=== PATIENT | male | born 1985 | race Caucasian/White ===

== ENCOUNTER 2017-10-22 08:53 | Emergency (ER) | payer BC, SELFPAY ==
[2017-10-22 09:10] VITALS: BP 138/92; PULSE 89; RESP 18; TEMP 36.8; O2SAT 99; BMI 23.0
--- NOTE | 2017-10-22 09:14 | HMH.EDUTC ---
[facility] – [place] Disposition Clinical Impression: Upper respiratory infection Qualifiers: URI type: unspecified URI Qualified Code(s): J06.9 - Acute upper respiratory infection, unspecified Disposition: Home, Self-Care Condition on Discharge: Good Instructions: Sore Throat, DI for Cough -- Adult, DI for Nasal Congestion Additional Instructions: * Monitor Temp. Tylenol and/or Ibuprofen as needed. ER if fever is no less than 101 despite alternating Tylenol and Ibuprofen * Encourage fluids, water, Gatorade, powerade, pedialyte if infant/toddler/or child * Warm salt water gargles for throat irritation *Warm fluids *Sore throat lozenges *Sleep elevated *humidifier or vaporizer Lots of rest Increase fluids, water, Gatorade, powerade *Flonase 2 sprays each nostril daily but may take 2-3 days to notice improvement with it Follow up IMMEDIATELY for new or worsening of symptoms OR no noticeable improvement over the next 48-72 hours. 911 immediately for any life threatening symptoms such as chest pain or difficulty breathing Prescriptions: Brompheniramine/Pseudoephed/Dm [Bromfed DM Cough Syrup 5mL] 10 ml PO Q4HP PRN #200 ml PRN Reason: Cough Azithromycin [Z-Jose Manuel 250mg Tab] 250 mg PO UD DOSE PK #6 tab Fluticasone Propionate [Flonase 50mcg nasal spray 16gm] 2 spr NS DAILY #1 bottle predniSONE [Prednisone 5mg Tab Dose-Pack] 5 mg PO UD DOSE PK #1 pack Time of Disposition: 09:32 Medical Decision Making - Medical Records Medical records reviewed: Yes: I reviewed the patient's medical records. Vital Signs: 10/22/17 09:10 Temperature 98.2 F Temperature Source Temporal Artery Scan Pulse Rate [Right] 89 Respiratory Rate 18 Blood Pressure [Right Arm] 138/92 Blood Pressure Mean [Right Arm] 107 Blood Pressure Source [Right Arm] Automatic Cuff Blood Pressure Position [Right Arm] Sitting 02 Sat by Pulse Oximetry 99 Oxygen Delivery Method Room Air Orders (Tests/Meds): ED MEDICATIONS Discontinued Medications Generic Name Dose Route Start Last Admin Trade Name Freq PRN Reason Stop Dose Admin Methylprednisolone Sodium Succinate 125 mg 10/22/17 09:19 Solu-Medrol 125mg/2ml Vial IM 10/22/17 09:20 ONCE ONE - Bear Inquiry Pt receiving controlled substance: No Bear was queried for this patient: No - Reevaluation(s) Reevaluation #1: Patient denies allergies to medication [facility] [place] HPI - General Stated complaint: head congestion and drainage Mode of Arrival: Ambulatory Source of Information: Patient Limitations: No Limitations Description of Symptoms (Recalled from Triage Doc. by RN): COUGH, CONGESTION, SORE THROAT LAST NIGHT HEENT Symptoms (Recalled from RN notes): Yes Resp Symptoms (Recalled from RN notes): No Skin Symptoms (Recalled from RN notes): No MS Symptoms (Recalled from RN notes): No Functional Status (Recalled from RN notes): N - History of Present Illness Provider Complaint: Patient state that he has been having cough, sore throat and head congestion that began to worsen yesterday and has continued to get worse. State that he has not felt well since yesterday and has continued to feel worse. State that he has not had fever but state that family members have been sick. State that his girlfriend was diagnosed with sinus infection recently and not sure if he has one or not - Related Data Previous Rx's Medication Instructions Recorded Azithromycin [Z-Jose Manuel 250mg Tab] 250 mg PO UD DOSE PK #6 tab 10/22/17 Brompheniramine/Pseudoephed/Dm 10 ml PO Q4HP PRN #200 ml 10/22/17 [Bromfed DM Cough Syrup 5mL] Fluticasone Propionate [Flonase 2 spr NS DAILY #1 bottle 10/22/17 50mcg nasal spray 16gm] predniSONE [Prednisone 5mg Tab 5 mg PO UD DOSE PK #1 pack 10/22/17 Dose-Pack] Allergies Allergy/AdvReac Type Severity Reaction Status Date / Time No Known Allergies Allergy Verified 10/22/17 09:13 - Worker's Comp Is this a Worker's Comp case?: No [facility] History I have reviewed the patient's pas
--- NOTE | 2017-10-22 09:19 | ED_ITS ---
[facility] [place] Clinical Impression: Upper respiratory infection Qualifiers: URI type: unspecified URI Qualified Code(s): J06.9 - Acute upper respiratory infection, unspecified Disposition: Home, Self-Care Condition on Discharge: Good Instructions: Sore Throat, DI for Cough -- Adult, DI for Nasal Congestion Additional Instructions: * Monitor Temp. Tylenol and/or Ibuprofen as needed. ER if fever is no less than 101 despite alternating Tylenol and Ibuprofen * Encourage fluids, water, Gatorade, powerade, pedialyte if infant/toddler/or child * Warm salt water gargles for throat irritation *Warm fluids *Sore throat lozenges *Sleep elevated *humidifier or vaporizer Lots of rest Increase fluids, water, Gatorade, powerade *Flonase 2 sprays each nostril daily but may take 2-3 days to notice improvement with it Follow up IMMEDIATELY for new or worsening of symptoms OR no noticeable improvement over the next 48-72 hours. 911 immediately for any life threatening symptoms such as chest pain or difficulty breathing Prescriptions: Brompheniramine/Pseudoephed/Dm [Bromfed DM Cough Syrup 5mL] 10 ml PO Q4HP PRN # 200 ml PRN Reason: Cough Azithromycin [Z-Jose Manuel 250mg Tab] 250 mg PO UD DOSE PK #6 tab Fluticasone Propionate [Flonase 50mcg nasal spray 16gm] 2 spr NS DAILY #1 bottle predniSONE [Prednisone 5mg Tab Dose-Pack] 5 mg PO UD DOSE PK #1 pack Time of Disposition: 09:32 Medical Decision Making - Medical Records Medical records reviewed: Yes: I reviewed the patient's medical records. Vital Signs: 10/22/17 09:10 Temperature 98.2 F Temperature Source Temporal Artery Scan Pulse Rate [Right] 89 Respiratory Rate 18 Blood Pressure [Right Arm] 138/92 Blood Pressure Mean [Right Arm] 107 Blood Pressure Source [Right Arm] Automatic Cuff Blood Pressure Position [Right Arm] Sitting 02 Sat by Pulse Oximetry 99 Oxygen Delivery Method Room Air Orders (Tests/Meds): ED MEDICATIONS Discontinued Medications Generic Name Dose Route Start Last Admin Trade Name Freq PRN Reason Stop Dose Admin Methylprednisolone Sodium Succinate 125 mg 10/22/17 09:19 Solu-Medrol 125mg/2ml Vial IM 10/22/17 09:20 ONCE ONE - Bear Inquiry Pt receiving controlled substance: No Bear was queried for this patient: No - Reevaluation(s) Reevaluation #1: Patient denies allergies to medication [facility] [place] - General Stated complaint: head congestion and drainage Mode of Arrival: Ambulatory Source of Information: Patient Limitations: No Limitations Description of Symptoms (Recalled from Triage Doc. by RN): COUGH, CONGESTION, SORE THROAT LAST NIGHT HEENT Symptoms (Recalled from RN notes): Yes Resp Symptoms (Recalled from RN notes): No Skin Symptoms (Recalled from RN notes): No MS Symptoms (Recalled from RN notes): No Functional Status (Recalled from RN notes): N - History of Present Illness Provider Complaint: Patient state that he has been having cough, sore throat and head congestion that began to worsen yesterday and has continued to get worse. State that he has not felt well since yesterday and has continued to feel worse. State that he has not had fever but state that family members have been sick. State that his girlfriend was diagnosed with sinus infection recently and not sure if he has one or not - Related Data Previous Rx's Medication Instruct
[2017-10-22 09:27] LABS: UTC Influenza A Antigen Negative (Negative); UTC Influenza B Antigen Negative (Negative)
[2017-10-22 09:40] VITALS: BP 142/88; PULSE 78; RESP 16; TEMP 36.9
== END 2017-10-22 09:41 | disposition home or self-care (01) ==
PROVIDERS: Emergency Provider Nurse Practitioner; Family Provider Physician Assistant
DX: J06.9 Acute upper respiratory infection, unspecified (principal); F17.210 Nicotine dependence, cigarettes, uncomplicated
CPT/HCPCS: 87804; 96372; 99201

== ENCOUNTER 2017-11-03 15:43 | Emergency (ER) | payer BC, SELFPAY ==
[2017-11-03 17:33] VITALS: BP 153/90; PULSE 71; RESP 20; TEMP 36.4; O2SAT 99; BMI 29.7
[2017-11-03 17:40] LABS: UTC Influenza A Antigen Negative (Negative); UTC Influenza B Antigen Negative (Negative)
--- NOTE | 2017-11-03 17:46 | HMH.EDUTC ---
[facility] – [place] Disposition Clinical Impression: Rhinorrhea, Exposure to influenza Disposition: Home, Self-Care Condition on Discharge: Good Instructions: DI for Viral Upper Respiratory Infection -- Adult, DI for Allergic Rhinitis Additional Instructions: * No sign of bacterial infection. Could be viral or allergies depending on how/ifit progresses. Virus can take 7-14 days to run their course * Monitor Temp. FU if fever develops * Encourage fluids, water, gatorade, powerade, pedialyte if /toddler/child * warm salt water gargles * warm fluids * sore throat lozenges * sleep elevated * humidifier/vaporizer * Start antihistamine of your choice (claritin, zyrtec, laura). If no improvement over 5-7 days, add flonase that you already have at home. Start with 1 spray each nostril daily and if no improvement after 4-6 days, increase to 2 sprays each nostril Referrals: Ira Ojeda PA [Primary Care Provider] - (IMMEDIATELY for new or worsening symptoms ) Forms: Work/School Release Time of Disposition: 18:02 Medical Decision Making Vital Signs: 11/03/17 17:33 Temperature 97.6 F Temperature Source Temporal Artery Scan Pulse Rate [Right Radial] 71 Respiratory Rate 20 Blood Pressure [Right Arm] 153/90 Blood Pressure Mean [Right Arm] 111 02 Sat by Pulse Oximetry 99 Oxygen Delivery Method Room Air - Lab Data Lab results reviewed: Yes: I reviewed the patient's lab results. Lab Results 11/03/17 17:26: Influenza Type A Ag Negative, Influenza Type B Ag Negative - Bear Inquiry Pt receiving controlled substance: No [facility] [place] HPI - General Stated complaint: check for flu Time Seen by Provider: 11/03/17 17:46 Mode of Arrival: Family Vehicle Source of Information: Patient Limitations: No Limitations Description of Symptoms (Recalled from Triage Doc. by RN): pt c/o flu like symptoms for 2 days. HEENT Symptoms (Recalled from RN notes): Yes (flu like) Resp Symptoms (Recalled from RN notes): Yes (flu like) Skin Symptoms (Recalled from RN notes): No MS Symptoms (Recalled from RN notes): No Functional Status (Recalled from RN notes): na - History of Present Illness Provider Complaint: c/o I want checked for the flu. my girlfriend has it and now I have a runny nose and cough . Started 2 days ago. Had spent the day outside. No treatment. Denies fever, aches, chills - Related Data Previous Rx's Medication Instructions Recorded Azithromycin [Z-Jose Manuel 250mg Tab] 250 mg PO UD DOSE PK #6 tab 10/22/17 Brompheniramine/Pseudoephed/Dm 10 ml PO Q4HP PRN #200 ml 10/22/17 [Bromfed DM Cough Syrup 5mL] Fluticasone Propionate [Flonase 2 spr NS DAILY #1 bottle 10/22/17 50mcg nasal spray 16gm] predniSONE [Prednisone 5mg Tab 5 mg PO UD DOSE PK #1 pack 10/22/17 Dose-Pack] Allergies Allergy/AdvReac Type Severity Reaction Status Date / Time No Known Allergies Allergy Verified 10/22/17 09:13 - Worker's Comp Is this a Worker's Comp case?: No [facility] History I have reviewed the patient's past medical history: Yes Medical History: Denies:: Cancer, Diabetes Mellitus Type 1, Diabetes Mellitus Type 2, Hypertension, MRSA Other Surgeries: Yes: No Previous Surgery Amputation: No Fractures: No - Social History Smoking Status: Current every day smoker Tobacco Type: cigarettes Alcohol Intake: current Alcohol Intake Frequency:: 0-2 drinks per day - Psychiatric History Expresses thoughts of harming self/others: None Suicide Plan Description: No Plan ROS Obtained: Yes Systems reviewed as appropriate & no additional complaints - Constitutional Constitutional: Reports as per HPI, Denies fatigue, Denies poor appetite - Eyes Eyes: Denies eye discharge, Denies itchy eyes, Denies eye pain, Denies other (eye redness) - ENT Ears, Nose, Mouth, and Throat: Reports as per HPI, Denies difficulty swallowing, Denies otalgia, Denies pain with swallowing, Reports post nasal drip, Denies sore throat, Denies other (sneezing) -
--- NOTE | 2017-11-03 17:59 | ED_ITS ---
[facility] – [place] Disposition Clinical Impression: Rhinorrhea, Exposure to influenza Disposition: Home, Self-Care Condition on Discharge: Good Instructions: DI for Viral Upper Respiratory Infection -- Adult, DI for Allergic Rhinitis Additional Instructions: * No sign of bacterial infection. Could be viral or allergies depending on how/ ifit progresses. Virus can take 7-14 days to run their course * Monitor Temp. FU if fever develops * Encourage fluids, water, gatorade, powerade, pedialyte if infant/toddler/ child * warm salt water gargles * warm fluids * sore throat lozenges * sleep elevated * humidifier/vaporizer * Start antihistamine of your choice (claritin, zyrtec, laura). If no improvement over 5-7 days, add flonase that you already have at home. Start with 1 spray each nostril daily and if no improvement after 4-6 days, increase to 2 sprays each nostril Referrals: Ira Ojeda PA [Primary Care Provider] - (IMMEDIATELY for new or worsening symptoms ) Forms: Work/School Release Time of Disposition: 18:02 Medical Decision Making Vital Signs: 11/03/17 17:33 Temperature 97.6 F Temperature Source Temporal Artery Scan Pulse Rate [Right Radial] 71 Respiratory Rate 20 Blood Pressure [Right Arm] 153/90 Blood Pressure Mean [Right Arm] 111 02 Sat by Pulse Oximetry 99 Oxygen Delivery Method Room Air - Lab Data Lab results reviewed: Yes: I reviewed the patient's lab results. Lab Results 11/03/17 17:26: Influenza Type A Ag Negative, Influenza Type B Ag Negative - Bear Inquiry Pt receiving controlled substance: No [facility] [place] HPI - General Stated complaint: check for flu Time Seen by Provider: 11/03/17 17:46 Mode of Arrival: Family Vehicle Source of Information: Patient Limitations: No Limitations Description of Symptoms (Recalled from Triage Doc. by RN): pt c/o flu like symptoms for 2 days. HEENT Symptoms (Recalled from RN notes): Yes (flu like) Resp Symptoms (Recalled from RN notes): Yes (flu like) Skin Symptoms (Recalled from RN notes): No MS Symptoms (Recalled from RN notes): No Functional Status (Recalled from RN notes): na - History of Present Illness Provider Complaint: c/o I want checked for the flu. my girlfriend has it and now I have a runny nose and cough . Started 2 days ago. Had spent the day outside. No treatment. Denies fever, aches, chills - Related Data Previous Rx's Medication Instructions Recorded Azithromycin [Z-Jose Manuel 250mg Tab] 250 mg PO UD DOSE PK #6 tab 10/22/17 Brompheniramine/Pseudoephed/Dm 10 ml PO Q4HP PRN #200 ml 10/22/17 [Bromfed DM Cough Syrup 5mL] Fluticasone Propionate [Flonase 2 spr NS DAILY #1 bottle 10/22/17 50mcg nasal spray 16gm] predniSONE [Prednisone 5mg Tab 5 mg PO UD DOSE PK #1 pack 10/22/17 Dose-Pack] Allergies Allergy/AdvReac Type Severity Reaction Status Date / Time No Known Allergies Allergy Verified 10/22/17 09:13 - Worker's Comp Is this a Worker's Comp case?: No [facility] History I have reviewed the patient's past medical history: Yes Medical History: Denies:: Cancer, Diabetes Mellitus Type 1, Diabetes Mellitus Type 2, Hypertension, MRSA Other Surgeries: Yes: No Previous Surgery Amputation: No Fractures: No - Social History Smoking Status: Current every day smoker Tobacco Type: cigarettes Alcohol Intake: current Alcohol
[2017-11-03 18:20] VITALS: BP 137/77; PULSE 67; RESP 20; TEMP 37.1; O2SAT 99
== END 2017-11-03 18:22 | disposition home or self-care (01) ==
PROVIDERS: Emergency Provider Nurse Practitioner Family; Family Provider Physician Assistant; PCP Physician Assistant
DX: J34.89 Other specified disorders of nose and nasal sinuses (principal); Z20.828 Contact with and (suspected) exposure to other viral communicable diseases
CPT/HCPCS: 87804; 99202

== ENCOUNTER → 2020-02-21 12:28 | Outpatient (CLI) | payer OTHER, SELFPAY ==
--- NOTE | 2020-02-21 12:33 | XR_ITS ---
PROCEDURE: XR KNEE RT 4V CLINICAL INDICATION: right knee pain Right knee pain COMPARISON: No exams were available for comparison FINDINGS: No fracture or dislocation. No lytic or blastic change. There is normal mineralization. There is slight decrease in the joint space medially compared to the lateral joint space on the weight-bearing view. This could be seen with early degenerative changes. However, no osteophyte formation or osteosclerosis is evident. Other findings:None. IMPRESSION: Slight decrease in joint space medially otherwise negative right knee Dictated by: Tj Elizabeth MD 02/21/2020 13:30 Electronically signed by Tj Elizabeth MD in [place] 02/21/2020 13:30
== END ==
PROVIDERS: PCP Physician Assistant; Visit Provider Orthopaedic Surgery
DX: M25.561 Pain in right knee (principal)
CPT/HCPCS: 73564

== ENCOUNTER → 2020-02-28 15:19 | Outpatient (CLI) | payer OTHER, SELFPAY ==
--- NOTE | 2020-02-28 15:29 | MR_ITS ---
PROCEDURE: MR KNEE RT WO CON CLINICAL INDICATION: evaluate for meniscal tear Right knee pain and instability COMPARISON: XR KNEE RT 4V from 02/21/2020 TECHNIQUE: Routine multiplanar multi echo sequences are performed without gadolinium enhancement. FINDINGS: The cruciate ligaments, collateral ligaments, patellar tendon, and quadriceps tendon appear intact. No obvious meniscal tear. The patellar cartilage is well preserved. There is only small amount of fluid in the knee joint. No bone bruise or fracture or bone marrow edema. IMPRESSION: Negative MRI of the right knee Dictated by: Tj Elizabeth MD 03/01/2020 12:59 Electronically signed by Tj Elizabeth MD in [place] 03/01/2020 12:59
== END ==
PROVIDERS: PCP Physician Assistant; Visit Provider Orthopaedic Surgery
DX: M25.561 Pain in right knee (principal); G89.29 Other chronic pain
CPT/HCPCS: 73721

== ENCOUNTER → 2020-11-21 18:08 | Outpatient (CLI) | payer OTHER, SELFPAY ==
[2020-11-21 18:31] LABS: Basophils # 0.1 K/mm3 (0-0.2); Basophils % 0.6 % (0.1-2.0); Eosinophils # 0.1 K/mm3 (0.0-0.4); Eosinophils % 1.1 % (0.1-12.0); Hematocrit 44.7 % (42.0-52.0); Hemoglobin 14.5 g/dL (14.1-18.0); Lymphocytes # 11.2 K/mm3 (0.7-4.5); Lymphocytes % 95.2 % (10-50); Mean Corpuscular HGB Conc 32.5 g/dL (31.8-35.4); Mean Corpuscular Hemoglobin 30.1 pg (27.0-31.2); Mean Corpuscular Volume 92.8 fl (80-94); Mean Platelet Volume 9.9 fl (7.4-10.4); Monocytes # 0.4 K/mm3 (0.1-1.0); Platelet Count 283 K/mm3 (142-424); Red Blood Count 4.81 M/mm3 (4.60-6.20); Red Cell Distribution Width 12.8 % (11.5-17.5); White Blood Count 11.8 K/mm3 (4.8-10.8)
[2020-11-21 18:38] LABS: Neutrophils % 0.2 % (37.0-80.0)
[2020-11-21 18:40] LABS: MANUAL DIFFERENTIAL MANUAL DIFFERENTIAL (MANUAL DIFF)
[2020-11-21 19:06] LABS: Eosinophils % 1 % (0-3); Lymphocytes % 31 % (10-50); Monocytes % 4 % (2-9); Neutrophils % 64 % (42-76); Platelet Estimate Normal; RBC Morphology Normal; Total Cells Counted 100
[2020-11-21 19:11] LABS: Alanine Aminotransferase 17 U/L (12-78); Albumin Level 4.5 g/dl (3.5-5.0); Alkaline Phosphatase 67 U/L (38-126); Aspartate Amino Transferase 25 U/L (17-59); Bilirubin,Total 0.4 mg/dl (0.2-1.3); Blood Urea Nitrogen 12 mg/dl (9-20); Calcium 9.3 mg/dl (8.4-10.2); Carbon Dioxide 21 mmol/L (22.0-30.0); Chloride 108 mmol/L (98-107); Chol/HDL Ratio 4.4 (1-3.5); Cholesterol 172 mg/dl (140-200); Estimated Glomerular Filt Rate 111 ml/min (>60); GFR (African American) 135 ML/MIN (>60); Globulin 2.2 g/dL (1.3-3.2); Glucose 100 mg/dl (74-100); HDL Cholesterol 39 mg/dl (40-60); Sodium 140 mmol/L (136-145); Total Protein,Serum 6.7 g/dl (6.3-8.2); Triglycerides 130 mg/dl (30-150); VLDL Cholesterol 26 mg/dL (0-40)
[2020-11-21 19:22] LABS: Direct LDL Cholesterol 102.27 mg/dL (100-129)
[2020-11-21 19:28] LABS: T4 (Thyroxine) 10.6 ug/dl (5.53-11.0)
[2020-11-21 19:42] LABS: Thyroid Stimulating Hormone 1.11 uIU/mL (0.465-4.68)
[2020-11-23 09:35] LABS: Testosterone,Total 388 ng/dL (264-916)
== END ==
PROVIDERS: Visit Provider Physician Assistant
DX: N52.9 Male erectile dysfunction, unspecified (principal); Z00.00 Encounter for general adult medical examination without abnormal findings; R53.83 Other fatigue; M79.642 Pain in left hand; M79.641 Pain in right hand; F17.210 Nicotine dependence, cigarettes, uncomplicated
CPT/HCPCS: 80053; 80061; 84403; 84436; 84443; 85007; 85025

== ENCOUNTER → 2020-12-06 14:10 | Outpatient (CLI) | payer OTHER, SELFPAY ==
[2020-12-08 13:12] LABS: Testosterone,Total 354 ng/dL (264-916)
== END ==
PROVIDERS: Visit Provider Physician Assistant
DX: R79.89 Other specified abnormal findings of blood chemistry (principal)
CPT/HCPCS: 84403

== ENCOUNTER 2021-01-13 17:10 | Emergency (ER) | payer OTHER, SELFPAY ==
[2021-01-13 17:10] VITALS: BP 157/78; PULSE 65; RESP 18; TEMP 36.8; O2SAT 99; BMI 28.5
--- NOTE | 2021-01-13 17:43 | XR_ITS ---
PROCEDURE INFORMATION: Exam: XR Left Wrist Exam date and time: 01/13/2021 5:43 PM Age: 35 years old Clinical indication: Wrist; Left; Patient HX: Chronic pain in hands, pain worsening today---. Patient works with his hands everyday TECHNIQUE: Imaging protocol: XR Left wrist. Views: 3 or more views. COMPARISON: No relevant prior studies available. FINDINGS: Bones/joints: There is no acute fracture or dislocation. There is a 0.5 x 1.0 cm lucent lesion of the scaphoid with minimally sclerotic margins. Soft tissues: Normal. IMPRESSION: 1 cm lucent lesion of the scaphoid. The differential diagnosis is broad however includes neoplastic lesions such as simple bone cyst or enchondroma. Recommend further evaluation with MRI with contrast.
--- NOTE | 2021-01-13 17:45 | XR_ITS ---
PROCEDURE INFORMATION: Exam: XR Left Hand Exam date and time: 01/13/2021 5:45 PM Age: 35 years old Clinical indication: Left; Patient HX: Chronic pain in hands/wrist, worsening today---. Patient works with his hands everyday TECHNIQUE: Imaging protocol: XR Left hand. Views: 3 or more views. COMPARISON: No relevant prior studies available. FINDINGS: Bones/joints: There is no acute fracture or dislocation. Note is again made of a lucent lesion of the scaphoid, better visualized on wrist radiographs. Soft tissues: Normal. IMPRESSION: 1. No acute fracture or dislocation. 2. Lucent lesion of scaphoid, better evaluated on wrist radiographs.
[2021-01-13 17:59] VITALS: BP 149/83; PULSE 71; RESP 14; TEMP 36.9; O2SAT 99; BMI 28.6
--- NOTE | 2021-01-13 18:22 | HMH.EDUTC ---
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 Take ibuprofen for pain. I sent in a prescription to your pharmacy. Follow up with Dr. Veloz (orthopedics). I put in a referral but you need to call his office and schedule an appointment. Follow up with your regular doctor. GO TO THE ER FOR ANY WORSENING SYMPTOMS Prescriptions: Ibuprofen [Ibuprofen 800mg Tablet] 800 mg PO Q8HP PRN #30 tab PRN Reason: Moderate Pain Transmission Status: Received by [id number] Referrals: Ira Ojeda PA [Primary Care Provider] - Jose Veloz MD [Staff Physician] - Time of Disposition: 18:40 Medical Decision Making - Medical Records Medical records reviewed: No: I reviewed the patient's medical records. - Bear Inquiry Pt receiving controlled substance: No Vital Signs: 01/13/21 17:10 01/13/21 17:59 01/13/21 18:39 Temperature 98.3 F 98.4 F 98 F Temperature Source Oral Oral Pulse Rate 76 Pulse Rate [Right] 65 71 Respiratory Rate 18 14 18 Blood Pressure 139/87 Blood Pressure [Right Arm] 157/78 H 149/83 H Blood Pressure Mean [Right Arm] 104 105 Blood Pressure Source [Right Arm] Automatic Cuff Blood Pressure Position [Right Arm] Sitting 02 Sat by Pulse Oximetry 99 99 Oxygen Delivery Method Room Air Room Air - Radiology Data #1 Image(s): Hand Image Reviewed: Yes I reviewed the patient's radiology image, Yes I have reviewed radiologist's interpretation Preliminary Findings: Abnormal, No Fracture Seen PROCEDURE INFORMATION: Exam: XR Left Hand Exam date and time: 01/13/2021 5:45 PM Age: 35 years old Clinical indication: Left; Patient HX: Chronic pain in hands/wrist, worsening today---. Patient works with his hands everyday TECHNIQUE: Imaging protocol: XR Left hand. Views: 3 or more views. COMPARISON: No relevant prior studies available. FINDINGS: Bones/joints: There is no acute fracture or dislocation. Note is again made of a lucent lesion of the scaphoid, better visualized on wrist radiographs. Soft tissues: Normal. IMPRESSION: 1. No acute fracture or dislocation. 2. Lucent lesion of scaphoid, better evaluated on wrist radiographs. #2 Image(s): Wrist Image Reviewed: Yes I reviewed the patient's radiology image, Yes I have reviewed radiologist's interpretation Preliminary Findings: Abnormal, No Fracture Seen PROCEDURE INFORMATION: Exam: XR Left Wrist Exam date and time: 01/13/2021 5:43 PM Age: 35 years old Clinical indication: Wrist; Left; Patient HX: Chronic pain in hands, pain worsening today---. Patient works with his hands everyday TECHNIQUE: Imaging protocol: XR Left wrist. Views: 3 or more views. COMPARISON: No relevant prior studies available. FINDINGS: Bones/joints: There is no acute fracture or dislocation. There is a 0.5 x 1.0 cm lucent lesion of the scaphoid with minimally sclerotic margins. Soft tissues: Normal. IMPRESSION: 1 cm lucent lesion of the scaphoid. The differential diagnosis is broad however includes neoplastic lesions such as simple bone cyst or enchondroma. Recommend further evaluation with MRI with contrast. [facility] [place] - General Stated complaint: pain in L wrist trouble using L hand Time Seen by Provider: 01/13/21 18:22 Mode of Arrival: Ambulatory Source of Information: Patient Limitations: No Limitations Description of Symptoms (Recalled from Triage Doc. by RN): L hand a wrist pain. started about a month
[2021-01-13 18:39] VITALS: BP 139/87; PULSE 76; RESP 18; TEMP 36.6
== END 2021-01-13 18:44 | disposition home or self-care (01) ==
LOC: ER 17:29 → UTC 17:30
PROVIDERS: Emergency Provider Nurse Practitioner Family; PCP Physician Assistant
DX: M79.642 Pain in left hand (principal); D16.12 Benign neoplasm of short bones of left upper limb; F17.210 Nicotine dependence, cigarettes, uncomplicated
CPT/HCPCS: 29125; 73110; 73130; 99202; G0463

== ENCOUNTER → 2021-02-27 10:02 | Outpatient (CLI) | payer OTHER, SELFPAY ==
--- NOTE | 2021-02-27 10:11 | MR_ITS ---
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 18ml prohance; Additional info: Evaluate bone cyst TECHNIQUE: Imaging protocol: MR of the Left upper extremity without and with contrast. Exam focused on the wrist. Contrast material: PROHANCE; Contrast volume: 18 ml; Contrast route: IV; COMPARISON: CR XR WRIST LT MIN 3V 01/13/2021 5:44 PM FINDINGS: Bones and cartilage: Within the bone marrow of the scaphoid bone, there is a STIR hyperintense multiloculated cystic/lytic lesion measuring 0.9 x 0.6 cm. This demonstrates a narrow zone of transition, with peripheral enhancement. A tiny cortical defect is identified posteriorly on T1. A similar finding is visualized on prior radiographs. Surrounding enhancing marrow edema is visualized within the scaphoid bone. Differential considerations for the cystic/lytic lesion include osteoarthritis, chronic repetitive trauma, intra-osseous ganglion, arthropathy, and infection. Additional etiologies cannot be excluded. No dislocation of the carpal bones. Joint spaces: Mild narrowing of the radiocarpal joint space, consistent with arthropathy. Scapholunate ligament: Heterogeneous signal intensity of the scapholunate ligament on the coronal 3D sequence, although tear is not definitive on the coronal STIR sequence. Lunotriquetral ligament: No tear. Triangular fibrocartilage complex: No visualized tear. Flexor compartment tendons: Unremarkable. No tear. Extensor compartment tendons: Minimal fluid adjacent to the extensor carpi radialis longus and brevis tendons, consistent with minimal tenosynovitis. Mild increased signal intensity within the extensor carpi ulnaris tendon, consistent with tendinosis. Muscles: No acute abnormality. Soft tissues: Mild soft tissue swelling dorsal to the wrist. IMPRESSION: 1. Within the bone marrow of the scaphoid bone, there is a multiloculated cystic/lytic lesion measuring 0.9 x 0.6 cm. A tiny cortical defect is identified posteriorly on T1. Surrounding enhancing marrow edema is visualized within the scaphoid bone. Differential considerations for the cystic/lytic lesion include osteoarthritis, chronic repetitive trauma, intra-osseous ganglion, arthropathy, and infection. Clinical correlation and follow-up imaging recommended. 2. Mild narrowing of the radiocarpal joint space, consistent with arthropathy. 3. Mild tendinosis of the extensor carpi ulnaris tendon. 4. Mild soft tissue swelling dorsal to the wrist. 5. Additional findings described above.
--- NOTE | 2021-02-27 10:14 | XR_ITS ---
PROCEDURE: XR ORBIT BILATERAL MIN 4V CLINICAL INDICATION: MRI CLEARANCE COMPARISON: No exams were available for comparison FINDINGS: No radiopaque foreign body in the orbits to preclude MRI. Paranasal sinuses appear patent. IMPRESSION: No radiopaque foreign body in the orbits to preclude MRI. Dictated by: Issac Alexandre MD 02/27/2021 10:25 Issac Alexandre MD in [place] 02/27/2021 10:25
== END ==
PROVIDERS: PCP Physician Assistant; Visit Provider Orthopaedic Surgery
DX: H05.53 Retained (old) foreign body following penetrating wound of bilateral orbits (principal); M85.642 Other cyst of bone, left hand
CPT/HCPCS: 70200; 73223; A9576

== ENCOUNTER → 2021-08-15 09:49 | Outpatient (CLI) | payer OTHER, SELFPAY | PROVIDERS: PCP Physician Assistant; Visit Provider Nurse Practitioner | DX: Z20.822 Contact with and (suspected) exposure to COVID-19 (principal) | CPT/HCPCS: C9803; U0003; U0005 ==

== ENCOUNTER → 2021-09-23 10:58 | Outpatient (CLI) | payer OTHER, SELFPAY | PROVIDERS: Visit Provider Nurse Practitioner | DX: Z20.822 Contact with and (suspected) exposure to COVID-19 (principal) | CPT/HCPCS: C9803; U0003; U0005 ==

== ENCOUNTER 2021-12-10 12:04 | Emergency (ER) | payer OTHER, SELFPAY ==
--- NOTE | 2021-12-10 14:21 | HMH.EDUTC ---
[facility] [place] Clinical Impression: Viral syndrome Pharyngitis Qualifiers: Pharyngitis/tonsillitis etiology: unspecified etiology Qualified Code(s): J02.9 - Acute pharyngitis, unspecified Disposition: Home, Self-Care Condition on Discharge: Good Instructions: DI for Pharyngitis/Tonsillopharyngitis -- Adult, DI for Viral Syndrome Additional Instructions: Drink plenty of fluids. Take tylenol or ibuprofen for pain or fever. Take the medications as directed. Follow up with your regular doctor. GO TO THE ER FOR ANY WORSENING SYMPTOMS Prescriptions: Brompheniramine/Pseudoephed/Dm [Bromfed Dm Cough Syrup] 5 ml PO Q6HP PRN #240 ml PRN Reason: Cough Transmission Status: Received by [facility] Ondansetron [Zofran 4mg ODT] 4 mg PO Q8HP PRN #20 tab PRN Reason: Nausea Transmission Status: Received by [facility] methylPREDNISolone [Medrol] 4 mg PO DIRECTED 6 Days #21 packet Transmission Status: Received by [facility] Azithromycin [Z-Jose Manuel 250mg Tab*] 250 mg PO UD DOSE PK #6 tab Transmission Status: Received by [facility] Referrals: Ira Ojeda PA [Primary Care Provider] - Forms: Work/School Release Time of Disposition: 15:50 Medical Decision Making - Medical Records Medical records reviewed: No: I reviewed the patient's medical records. - Bear Inquiry Pt receiving controlled substance: No Vital Signs: 12/10/21 14:28 12/10/21 16:12 Temperature 100.7 F H 100.7 F H Temperature Source Oral Pulse Rate 104 H Pulse Rate [Left] 104 H Respiratory Rate 18 18 Blood Pressure 142/88 H Blood Pressure [Right Arm] 142/88 H Blood Pressure Mean [Right Arm] 106 02 Sat by Pulse Oximetry 97 - Lab Data Lab results reviewed: Yes: I reviewed the patient's lab results. Lab Results 12/10/21 14:19: Influenza Type A Ag Negative, Influenza Type B Ag Negative 12/10/21 15:10: Group A Strep Rapid Negative Orders (Tests/Meds): ORDERS Category Date Time Status Strep Screen Confirmation Stat Micro 12/10/21 15:10 Received [facility] [place] - General Stated complaint: sore throat,congested,runny nose,achey Time Seen by Provider: 12/10/21 14:21 - History of Present Illness Provider Complaint: He c/o sinsu congstion, body aches, low grade fever and feeling bad for the past 3 days. - Related Data Previous Rx's Medication Instructions Recorded Ibuprofen [Ibuprofen 800mg 800 mg PO Q8HP PRN #30 tab 01/13/21 Tablet] Azithromycin [Z-Jose Manuel 250mg Tab*] 250 mg PO UD DOSE PK #6 tab 12/10/21 Brompheniramine/Pseudoephed/Dm 5 ml PO Q6HP PRN #240 ml 12/10/21 [Bromfed Dm Cough Syrup] Ondansetron [Zofran 4mg ODT] 4 mg PO Q8HP PRN #20 tab 12/10/21 methylPREDNISolone [Medrol] 4 mg PO DIRECTED 6 Days #21 12/10/21 packet Allergies Allergy/AdvReac Type Severity Reaction Status Date / Time No Known Allergies Allergy Verified 08/05/21 16:38 [facility] History - Hepatitis A Screen Attestation statement:: This patient has been screened for Hepatitis A risk factors. I have reviewed the patient's past medical history: Yes Medical History: Denies:: Cancer, Diabetes Mellitus Type 1, Diabetes Mellitus Type 2, Hypertension, MRSA Other Surgeries: Yes: No Previous Surgery, Colonoscopy Amputation: No Fractures: No - Social History Smoking Status: Current every day smoker Tobacco Type: cigarettes Alcohol Intake: current Alcohol Intake Frequency:: holidays/special occasions only Occupational Status: employed Family Hx:: Heart Attack, Stroke ROS Obtained: Yes All systems reviewed & no additional complaints - Constitutional Constitutional: Reports as per HPI - Eyes Eyes: Denies eye discharge - ENT Ears, Nose, Mouth, and Throat: Reports as per HPI - Cardiovascular Cardiovascular: Denies chest pain - Respiratory Respiratory: Reports chest congestion, Reports cough, Denies dyspnea, Denies stridor, Denies wheezing Physical
[2021-12-10 14:28] VITALS: BP 142/88; PULSE 104; RESP 18; TEMP 38.2; O2SAT 97; BMI 28.3
[2021-12-10 14:30] LABS: UTC Influenza A Antigen Negative (Negative); UTC Influenza B Antigen Negative (Negative)
[2021-12-10 15:40] LABS: Strep Scrn Group A (Rapid) Negative (Negative)
[2021-12-10 16:12] VITALS: BP 142/88; PULSE 104; RESP 18; TEMP 38.2
== END 2021-12-10 16:13 | disposition home or self-care (01) ==
PROVIDERS: Emergency Provider Nurse Practitioner Family; PCP Physician Assistant
DX: B34.9 Viral infection, unspecified (principal); J02.9 Acute pharyngitis, unspecified; F17.210 Nicotine dependence, cigarettes, uncomplicated
CPT/HCPCS: 87430; 87804

== ENCOUNTER → 2023-06-29 17:26 | Outpatient (CLI) | payer MEDICARE, SELFPAY | PROVIDERS: PCP Physician Assistant; Visit Provider Physician Assistant | DX: R19.5 Other fecal abnormalities (principal) | CPT/HCPCS: 87177 ==

== ENCOUNTER 2024-04-05 10:29 | Emergency (ER) | payer OTHER, SELFPAY ==
[2024-04-05] VITALS (7 sets, daily range): BP systolic 123–141; BP diastolic 74–85; PULSE 60–78; RESP 18; TEMP 36.4–36.7; O2SAT 98–100; BMI 24.5
--- NOTE | 2024-04-05 10:44 | ECG_ITS ---
APPROVED REPORT Exam: Resting ECG HR:73 bpm ECG Measurements Heart Rate 73 AXES AR 171 P 81 QRSd 101 QRS 61 QT 374 T 66 QTc 400 Conclusion SINUS RHYTHM POSSIBLE RIGHT VENTRICULAR CONDUCTION DELAY [RSR (QR) IN V1/V2] BORDERLINE ECG Electronically signed by : SCARLETT LECHUGA, 04/05/2024 16:29:50
--- NOTE | 2024-04-05 10:51 | PC.NURSE ---
DR LECHUGA AT BEDSIDE
--- NOTE | 2024-04-05 10:53 | XR_ITS ---
FINAL REPORT CLINICAL HISTORY: L chest pain, cough COMPARISON: None FINDINGS: No acute pulmonary density is evident. There is no evidence of effusion or other pleural disease. The mediastinum has a normal appearance. The cardiac silhouette is unremarkable. IMPRESSION: Unremarkable chest exam. Reviewed, Interpreted and Dictated by Nolan Aquino MD Transcribed by Laurie Spangler Authenticated and . [facility]
--- NOTE | 2024-04-05 10:55 | HMH.EDGENADL ---
Discharge Plan Disposition Patient Disposition: Home, Self-Care Condition: Good Prescriptions Prescriptions: No Action bupropion HCl [Wellbutrin XL] 150 mg tablet extended release 24 hr 150 mg PO DAILY Qty: 14 0RF bupropion HCl [Wellbutrin XL] 300 mg tablet extended release 24 hr 300 mg PO DAILY Qty: 30 2RF Referrals Follow up/Referrals: Ira Ojeda PA [Primary Care Provider] - See instructions Activity Restrictions/Add. Instructions Additional Instructions/Restrictions: You were evaluated in the emergency department today. At this time, your heart enzyme and x-ray are normal and reassuring. You do have a low neutrophil count, which is one of your white blood cells. I recommend close follow-up with your primary care provider for monitoring of this. Take Tylenol and ibuprofen at home as needed for pain. Return to the emergency department for new or worsening symptoms, such as worsening pain or fever greater than 100.4 ?F. Clinical Impressions Clinical Impression: Neutropenia, Left-sided chest pain Stand Alone Forms Stand Alone Forms: Work/School Release Instructions Patient Instructions: DI for Atypical Chest Pain, DI for Neutropenia Print Language Print Language: Sinhala Discharge ED Provider: Eleanor Trinidad General Adult HPI General Chief complaint: Back Pain/Injury Stated complaint: right lung pain, left arm numb Time Seen by Provider: 04/05/24 10:42 Mode of Arrival: Ambulatory Source of Information: Patient Limitations: No Limitations Description of Symptoms (Recalled from ER Triage Doc. by RN): PT REPORTS LEFT SIDED BACK/LUNG PAIN THAT STARTED THIS AM. REPORTS PAIN WITH INSPIRATION. NO NEW SHORTNESS OF BREATH, NO COUGH, FEVER OR CHILLS. REPORTS ONGOING NUMBESS TO LEFT ARM X 2 MONTHS History of Present Illness HPI narrative: This patient is a 38-year-old male with a history of tobacco dependence presenting to the emergency department for evaluation with concern for left-sided chest pain is worse when he takes a deep breath. He notes that it started today at work after standing up. He also notes that he had a mild cough. He states intermittently for a long time now he has been having numbness and tingling to his left arm. No back pain or injury noted. No focal motor weakness. He states he wanted to come in to get checked out because he has extensive cardiac history in his family. No other concerns noted at this time. Related Data Previous Rx's ?Medication ?Instructions ?Recorded bupropion HCl 150 mg 24 hr tablet, 150 mg PO DAILY #14 tabs 06/28/23 extended release (Wellbutrin XL) bupropion HCl 300 mg 24 hr tablet, 300 mg PO DAILY #30 tabs 06/28/23 extended release (Wellbutrin XL) Allergies Allergy/AdvReac Type Severity Reaction Status Date / Time No Known Allergies Allergy Verified 06/28/23 16:00 [facility] Disclaimer: The information contained in this section may have been updated after the patient was seen, as this information can be updated by other users. Medical History Enchondroma of bone of hand Gastroenteritis Nausea and vomiting Social History Smoking Status: Current every day smoker tobacco type: cigarettes alcohol intake: current alcohol intake frequency: holidays/special occasions only current occupational status: employed Travel in the last 8 weeks: None current occupation: [employer] Obtained: Yes All systems reviewed & no additional complaints except as documented Physical Exam General General appearance: alert and in no apparent distress Head Head exam: atraumatic and normocephalic Eye Eye exam: Present normal appearance, PERRL and EOMI ENT ENT exam: Present normal exam, normal oropharynx, mucous membranes moist and normal external ear exam Neck Neck exam: Present normal inspection, full ROM and trachea midline; Absent tenderness Chest Chest inspection: Present normal inspection and symmetric chest wall rise; Absent tenderness Respiratory Respiratory exam: Present normal lung sounds bilaterally; Absent respiratory distress, wheezes, stridor or accessory muscle use Cardiovascular Cardiovascular exam: Present regular rate and normal rhythm Abdominal Exam Abdominal exam: Present soft; Absent distention, tenderness or guarding Extremities Exam Extremities exam: Present normal inspection, full ROM and normal capillary refill; Absent tenderness or edema Back Exam Back exam: Present normal inspection and full ROM; Absent tenderness Neurological Exam Neurological exam: Present alert, oriented X3, CN II-XII intact and normal gait; Absent motor sensory deficit Psychiatric Psychiatric exam: Present normal affect and normal mood Skin Skin exam: Present warm and dry Medical Decision Making Medical Records Medical records reviewed: Yes I reviewed the patient's medical records. Bear Inquiry Pt receiving controlled substance: No Vital Signs: 04/05/24 10:30 04/05/24 11:00 04/05/24 11:30 Temperature 97.6 F Temperature Source Oral Pulse Rate 69 65 Pulse Rate [Radial] 78 Respiratory Rate 18 Blood Pressure 140/77 128/74 Blood Pressure [Right Arm] 141/85 H Blood Pressure Mean [Right Arm] 103 Blood Pressure Source Blood Pressure Source [Right Arm] Automatic Cuff Blood Pressure Position Blood Pressure Position [Right Arm] Sitting 02 Sat by Pulse Oximetry 99 98 100 Oxygen Delivery Method Room Air 04/05/24 12:00 04/05/24 12:30 04/05/24 13:00 Temperature Temperature Source Pulse Rate 65 66 60 Pulse Rate [Radial] Respiratory Rate Blood Pressure 123/77 123/81 128/84 Blood Pressure [Right Arm] Blood Pressure Mean [Right Arm] Blood Pressure Source Blood Pressure Source [Right Arm] Blood Pressure Position Blood Pressure Position [Right Arm] 02 Sat by Pulse Oximetry 99 99 99 Oxygen Delivery Method Room Air 04/05/24 13:29 Temperature 98.0 F Temperature Source Oral Pulse Rate 60 Pulse Rate [Radial] Respiratory Rate 18 Blood Pressure 128/84 Blood Pressure [Right Arm] Blood Pressure Mean [Right Arm] Blood Pressure Source Automatic Cuff Blood Pressure Source [Right Arm] Blood Pressure Position Sitting Blood Pressure Position [Right Arm] 02 Sat by Pulse Oximetry Oxygen Delivery Method Room Air Lab Data Lab results reviewed: Yes I reviewed the patient's lab results. Lab Results 04/05/24 10:40: WBC 11.1 H, RBC 4.19 L, Hgb 13.2 L, Hct 40.8 L, MCV 97.4 H, MCH 31.6 H, MCHC 32.4, RDW 13.5, Plt Count 271, MPV 10.2, Neut % (Auto) 0.4 L, Lymph % (Auto) 93.7 H, Butts % (Auto) 4.3, Eos % (Auto) 1.0, Baso % (Auto) 0.7, Neut # (Auto) 0.0 L*, Lymph # (Auto) 10.4 H, Butts # (Auto) 0.5, Eos # (Auto) 0.1, Baso # (Auto) 0.1, Total Counted 100, Neutrophils % (Manual) 73, Lymphocytes % (Manual) 25, Monocytes % (Manual) 2, Platelet Estimate Normal, RBC Morphology Normal, D-Dimer < 0.25, Sodium 141, Potassium 3.5, Chloride 110 H, Carbon Dioxide 23, Anion Gap 11.5, BUN 14, Creatinine 0.80, Estimated Creat Clear 144, Estimated GFR 109, Est GFR ( Amer) 132, Glucose 111 H, Calcium 9.5, Total Bilirubin 0.4, AST 40, ALT 29, Alkaline Phosphatase 78, Troponin I < 0.01, Total Protein 6.5, Albumin 4.1, Globulin 2.4, Albumin/Globulin Ratio 1.7 04/05/24 12:07: SARS-CoV-2 (PCR) Not detected, Influenza A Untype (PCR) Not detected, Influenza Type B (PCR) Not detected 04/05/24 10:40 04/05/24 10:40 Orders (Tests/Meds): ED MEDICATIONS Discontinued Medications Generic Name Dose Route Start Last Admin Trade Name Freq PRN Reason Stop Dose Admin Acetaminophen 1,000 mg 04/05/24 10:54 04/05/24 11:01 Acetaminophen 500mg Tab PO 04/05/24 10:55 1,000 mg ONCE ONE Administration Ketorolac Tromethamine 15 mg 04/05/24 10:54 04/05/24 11:01 Ketorolac 30mg/Ml Vial IV 04/05/24 10:55 15 mg ONCE ONE Administration Sodium Chloride 10 ml 04/05/24 11:31 Sodium Chloride 0.9% 10ml Flush Syringe IV 05/05/24 11:30 NEEDED PRN Maintain IV Site ORDERS Category Date Time Status CXR 2 view (NOT portable) [XR chest 2V] Stat Exams 04/05/24 10:53 Completed CBC w/Auto Diff [Complete Blood Count Auto Diff] Stat Lab 04/05/24 10:40 Completed CMP [Comprehensive Metabolic Panel] Stat Lab 04/05/24 10:40 Completed D-Dimer Stat Lab 04/05/24 10:40 Completed Rapid PCR Covid and Flu A/B Stat Lab 04/05/24 12:07 Completed Trop I [Troponin I] Stat Lab 04/05/24 10:40 Completed ECG Data Tracing #1: I reviewed this ECG and interpreted as documented below: Normal sinus rhythm with a ventricular rate of 73 beats per minute. No acute ST changes concerning for ischemia. Possible right ventricular conduction delay. ECG initial impression date: 04/05/24 ECG initial impression time: 10:46 HEART Score History (anamnesis): Slightly suspicious ECG: Normal Age: <45 years Risk factors: No known risk factors Troponin: </= normal limit HEART Score: 0 Medical Decision Narrative: In summary, this patient is a 38-year-old male presenting to the Emergency Department for evaluation of left-sided pleuritic chest pain. Differential diagnoses considered include but are not limited to ACS, dysrhythmia, pleurisy, pneumonia, viral syndrome, musculoskeletal strain/pain, PE. Ruling out the most morbid conditions drove assessment. It should be noted patient's history includes tobacco dependence which is not at goal therapy. This complicates all aspects of care by increasing patient's risk for morbidity. On exam, the patient is resting comfortably in bed in no acute distress with normal vital signs on cardiac telemetry. Cardiopulmonary exam is reassuring. He has equal pulses in his bilateral upper extremities and is neurovascularly intact in his upper extremity. Workup included chest x-ray, CBC, CMP, troponin, D-dimer, viral swab, and EKG. EKG obtained is reassuring. I independently interpreted chest x-ray prior to the radiologist read and noted no acute focal consolidation concerning for pneumonia and no pneumothorax. Please see their read for final interpretation. Labs were obtained that demonstrated neutropenia without leukopenia, mild leukocytosis, but no other acutely concerning abnormalities. D-dimer and troponin both negative. EKG normal. Heart score is 0. On reassessment, the patient is resting comfortably with reassuring exam. Vitals are normal, he is afebrile. He does have neutropenia, however no fever and no obvious signs of infection on clinical exam at this time. Given this, I feel that he is appropriate for discharge home with diagnosis of likely pleurisy and instructions for supportive management. I advised that he follow-up very closely outpatient for monitoring of his neutrophil count as well as gave him very strict return precautions, including fever. Patient was discharged after all questions were answered. Critical Care Critical Care Time Critical Care Time: No
--- NOTE | 2024-04-05 10:56 | INFXCTL.NOTE ---
PT TO XR
[2024-04-05] MEDS: ACETAMINOPHEN 500MG TAB 1000 MG PO (11:01)
[2024-04-05] MEDS: KETOROLAC 30MG/ML VIAL 15 MG IV (11:01)
[2024-04-05 11:09] LABS: Alanine Aminotransferase 29 U/L (12-78); Albumin Level 4.1 g/dl (3.5-5.0); Albumin/Globulin Ratio 1.7 (1.1-1.8); Alkaline Phosphatase 78 U/L (38-126); Anion Gap 11.5 mEq/L (5-15); Aspartate Amino Transferase 40 U/L (17-59); Bilirubin,Total 0.4 mg/dl (0.2-1.3); Blood Urea Nitrogen 14 mg/dl (9-20); Calcium 9.5 mg/dl (8.4-10.2); Carbon Dioxide 23 mmol/L (22.0-30.0); Chloride 110 mmol/L (98-107); Creatinine Clearance Estimated 144 mL/min (50-200); Estimated Glomerular Filt Rate 109 ml/min (>60); GFR (African American) 132 ML/MIN (>60); Globulin 2.4 g/dL (1.3-3.2); Glucose 111 mg/dl (74-100); Potassium 3.5 mmoL/L (3.5-5.1); Sodium 141 mmol/L (136-145); Total Protein,Serum 6.5 g/dl (6.3-8.2)
[2024-04-05 11:14] LABS: D-Dimer < 0.25 ug/mL (0.0-0.5)
[2024-04-05 11:51] LABS: Troponin I < 0.01 ng/ml (0.00-0.034)
[2024-04-05 11:59] LABS: Basophils # 0.1 K/mm3 (0-0.2); Basophils % 0.7 % (0.1-2.0); Eosinophils # 0.1 K/mm3 (0.0-0.4); Hematocrit 40.8 % (42.0-52.0); Hemoglobin 13.2 g/dL (14.1-18.0); Lymphocytes # 10.4 K/mm3 (0.7-4.5); Lymphocytes % 93.7 % (10-50); Mean Corpuscular HGB Conc 32.4 g/dL (31.8-35.4); Mean Corpuscular Hemoglobin 31.6 pg (27.0-31.2); Mean Corpuscular Volume 97.4 fl (80-94); Mean Platelet Volume 10.2 fl (7.4-10.4); Monocytes # 0.5 K/mm3 (0.1-1.0); Monocytes % 4.3 % (1.7-9.3); Neutrophils % 0.4 % (37.0-80.0); Platelet Count 271 K/mm3 (142-424); Red Blood Count 4.19 M/mm3 (4.60-6.20); Red Cell Distribution Width 13.5 % (11.5-17.5); White Blood Count 11.1 K/mm3 (4.8-10.8)
[2024-04-05 12:02] LABS: MANUAL DIFFERENTIAL MANUAL DIFFERENTIAL (MANUAL DIFF)
[2024-04-05 12:12] LABS: Coronavirus 19, PCR Not Detected (NotDetected); Influenza A, PCR Not Detected (NotDetected); Influenza B, PCR Not Detected (NotDetected)
[2024-04-05 12:23] LABS: Lymphocytes % 25 % (10-50); Monocytes % 2 % (2-9); Neutrophils % 73 % (42-76); Total Cells Counted 100
[2024-04-05 12:24] LABS: Platelet Estimate Normal; RBC Morphology Normal
== END 2024-04-05 13:35 | disposition home or self-care (01) ==
PROVIDERS: Emergency Provider Emergency Medicine; PCP Physician Assistant
DX: R07.1 Chest pain on breathing (principal); D70.9 Neutropenia, unspecified; R20.2 Paresthesia of skin; F17.210 Nicotine dependence, cigarettes, uncomplicated
CPT/HCPCS: 71046; 80053; 84484; 85007; 85025; 85027; 85378; 87636; 93005; 96374; 99284; J1885

== ENCOUNTER 2024-05-08 07:31 | Outpatient (CLI) | payer OTHER, SELFPAY ==
--- NOTE | 2024-05-08 | CA_ITS ---
APPROVED REPORT Exam: Exercise Treadmill Technologist: Shana Zavala Ht: 5 ft 11 in Wt: 186 lbs BSA: 2.04 m2 HR: 60 bpm BP: 139/87 mmHg Indications: Chest pain, dizziness Medical History Medications: No home meds,,,,, Stress Test Details Test: Kwadwo HR Resting HR: 78 bpm Max Heart Rate (APMHR): 183 bpm Max HR Achieved: 148 bpm Target HR (85% APMHR): 156 bpm % of APMHR: 81 Recovery HR: 82 bpm HR response to stress: Blunted HR response to stress BP Resting BP: 139.0/87.0 mmHg Max BP: 207.0/91.0 mmHg Recovery BP: 150.0/85.0 mmHg BP response to stress: Abnormal hypertensive response to stress. ECG Resting ECG: Normal sinus rhythm, baseline T wave changes Stress EC mm upsloping ST depression Arrhythmia: None Clinical Exercise duration: 10:21 min Highest Stage Achieved: Exercise capacity: 12.8 METs Overall Exercise Capacity for Age: Average Stress ECG Conclusion This is considered a suboptimal nondiagnostic stress test due to inability to achieve target HR. The patient was able to exercise for a total of 10 minutes, 21 seconds. He achieved a total of 12.8 METS. He has average exercise capacity compared to age and sex matched peers. There is hypertensive BP response to exercise. Symptoms: Shortness of breath with exercise. Stopped due to shortness of breath. Arrhythmias/Ectopy: None ST-T Changes: [address] segment depression Conclusion: Non-diagnostic as he did not reach target heart rate. Hypertensive response to exercise. BP control is recommended. Equivocal ST changes at peak stress at the level of HR achieved. Further evaluation with alternative modality for ischemia is recommended (e.g. pharmacologic nuclear stress test or CCTA) if clinically feasible. Test Summary REST . . . . . . . Sitting REST . . . . . . . Standing REST 08:18 0.0 0.0 78 . 139/ 87 . . Stage 1 01:00 10.0 1.7 90 . . . . Stage 1 02:00 10.0 1.7 89 . . . . Stage 1 03:00 10.0 1.7 85 . 154/ 82 . . Stage 2 01:00 12.0 2.5 100 . . . . Stage 2 02:00 12.0 2.5 103 . . . . Stage 2 03:00 12.0 2.5 101 . 168/ 82 . . Stage 3 01:00 14.0 3.4 116 . . . . Stage 3 02:00 14.0 3.4 117 . . . . Stage 3 03:00 14.0 3.4 117 . 182/ 80 . . Stage 4 01:00 16.0 4.2 142 . . . . Stage 4 01:21 16.0 4.2 146 . . . Stop exercise at 10:21 RECOVERY 01:00 0.0 0.0 115 . 200/ 88 . . RECOVERY 02:00 0.0 0.0 84 . 207/ 91 . . RECOVERY 03:00 0.0 0.0 83 . 169/ 88 . . RECOVERY 04:00 0.0 0.0 80 . 169/ 88 . . RECOVERY 04:20 0.0 0.0 85 . 150/ 85 . . Electronically signed by : Flower Leblanc MD 05/15/2024 23:08:12
--- NOTE | 2024-05-08 07:49 | CA_ITS ---
APPROVED REPORT EXAM: Comprehensive 2D, Doppler, and color-flow Echocardiogram Molder Hand: Nancy Mendez RVT Ht: 5 ft 11 in Wt: 186lbs BSA: 2.04 BP: 136/80 mmHg Indications: CP,SMOKER,DIZZINESS 2D Dimensions LA Volume 36.30 mL LA Volume Index 17.71 mL/m2 (M/F) 16-34 M-Mode Dimensions RVDd 2.38 cm (0.9-2.6) LA Diam 3.47 cm (1.9-4.0) LVDd 5.37 cm (3.5-5.7) LVDs 3.33 cm (3.5-5.7) IVSd 0.76 cm (0.6-1.1) PWd 0.57 cm (0.6-1.1) EF (Teich) 67.70% FS 38.00% EDV (Teich) 139.50 mL TAPSE 2.54 (<1.7) ESV (Teich) 45.10 mL LV Diastology E Decel Time 240 (160-240 msec) E/A Ratio 1.4 Aortic Valve KIARA Index 1.84 cm2/m2 AoV Peak Aly. 134.0 (50-130 cm/s) AO Peak GR. 7.20 mmHg AO Mean GR. 3.90 (<5 mmHg) AO VTI 26.1 (18-25 cm) KIARA (VTI) 3.84 (2.5-4.5 cm2) Mitral Valve MV E Max Aly. 100.0 (40-130 cm/s) MV A Velocity 71.0 (40-130 cm/s) E/A Ratio 1.41 MV PHT 70.0 ms Pulmonary Valve PV Peak Velocity 100.0 (50-150 cm/s) Tricuspid Valve TR P. Velocity 210.00 cm/s RAP Estimate 10.00 mmHg RVSP 27.60 mmHg Left Ventricle The left ventricle is normal size. The left ventricular systolic function is normal. The left ventricular ejection fraction is within the normal range. There is normal left ventricular wall thickness. There is normal LV segmental wall motion. The left ventricular diastolic function is normal. LVEF is 55%. Right Ventricle The right ventricle is mildly dilated. The right ventricular systolic function is normal. Atria The left atrium size is normal. The right atrium size is normal. There is no Doppler evidence of interatrial shunt. Aortic Valve The aortic valve is normal in structure. The aortic valve is trileaflet. There is no aortic valvular stenosis. No aortic regurgitation is present. Mitral Valve The mitral valve is normal in structure. No evidence of mitral valve stenosis. There is no mitral valve regurgitation noted. Tricuspid Valve The tricuspid valve leaflets are thin and pliable. Trace tricuspid regurgitation. There is insufficient TR jet to estimate RVSP. Pulmonic Valve The pulmonary valve is normal in structure. Trace pulmonic regurgitation. Great Vessels The aortic root is normal in size. The ascending aorta is normal in size. IVC is normal in size and collapses >50% with inspiration. Pericardium There is no pericardial effusion. Other Information Study Quality: Adequate Conclusion Normal biventricular systolic function. Mild RV dilation. No significant valvular stenosis or regurgitation. Electronically signed by : Flower Leblanc MD 05/10/2024 12:58:25
== END 2024-05-08 23:59 | disposition home or self-care (01) ==
LOC: RT 07:32
PROVIDERS: PCP Physician Assistant; Visit Provider Nurse Practitioner
DX: R42 Dizziness and giddiness (principal); R07.9 Chest pain, unspecified; Z82.49 Family history of ischemic heart disease and other diseases of the circulatory system; D70.9 Neutropenia, unspecified; F17.210 Nicotine dependence, cigarettes, uncomplicated
CPT/HCPCS: 93017; 93018; 93306

== ENCOUNTER 2024-06-14 12:03 | Outpatient (CLI) | payer OTHER, SELFPAY ==
--- NOTE | 2024-06-14 12:04 | CT_ITS ---
APPROVED REPORT [employer]: CLINICAL INDICATION Chest Pain TECHNIQUE Image Acquisition: A 128 slice MDCT scanner (RingCrediblea View) was used for data acquisition. A noncontrast coronary calcium scan was performed. A CT attenuation threshold of 130 Hounsfield units (HU) was used for the detection of calcium in contiguous voxels of 1 sq mm in area to be counted as individual lesions. Bolus tracking in the ascending aorta with a threshold of 180 HU was performed. Immediately afterwards, ECG synchronized cardiac CT was then performed from the cardiac base to apex using retrospective gating with ECG tube current modulation. A total of 85 mL of Isovue 370 mg/mL contrast medium was administered at 5 mL/sec followed by a saline flush using a biphasic injection protocol. A tube voltage of 120 KVp was used. The patient received the following medications prior to the cardiac CT. 25 mg of oral metoprolol 0.8 mg of sublingual nitroglycerin The average heart rate at the time of acquisition was 61 bpm and regular. Image Reconstruction Transaxial images were reconstructed at 0.67 mm slide thickness. Data was reviewed interactively on an advanced workstation capable of 2 and 3-dimensional displays in all conventional reconstruction formats, including multiplanar reformations, maximum intensity projections, curved multiplanar reformations, and volume rendered reconstructions. When applicable, selected routine images describing the relevant coronary anatomy and pathology were saved and sent to PACS. Complications None Technical Quality Overall image quality was good. Coronary artery opacification was adequate. Total DLP (Dose-Length Product) is 1785.9 mGy-cm. The reported value represents the total of one or more individual components during the CT acquisition of this date and at this time, and as such, the same value may appear in more than one CT report depending on the interpreting/reporting physicians. COMPARISON None FINDINGS CT Coronary Calcium Scoring LMA (Left Main Artery) = 0 LAD (Left Anterior Descending) = 4 LCX (Left Coronary Circumflex) = 0 RCA (Right Coronary Artery) = 10 Total Calcium Score = 14 using the AJ-130 method. The observed calcium score of 14 is at 99th percentile for subjects of the same age, sex, and race/ethnicity. The interpretation of the calcium heart score is based on the following continuum*: 0 = no calcified plaque detected (risk of coronary artery disease is very low ??? less than 5%) 1-10 = calcium detected in extremely minimal levels (risk of coronary diseases is still low ??? less than 10%) 11-100 = mild levels of plaque detected with certainty (mild or minimal narrowing of heart arteries is likely) 101-400 = definite,at least moderate levels of plaque detected (relatively high risk of a heart attack within 3-5 years) >401-999 = extensive levels of plaque detected (high risk of heart attack, high levels of vascular disease are present, high likelihood of at least one significant coronary narrowing) *The calcium heart score quantifies the burden of coronary calcification/plaque in the coronary arteries. The calcium heart score is not able to evaluate the presence or burden of non-calcified (i.e. soft) plaque. There is no identifiable calcification in the aortic valve, mitral annulus or mitral valve, pericardium, or myocardium. Coronary CT Angiography The coronary arterial system is right dominant. Quantitative Stenosis Grading: Left Main (LM): The left main originates normally from the left sinus of Valsalva. The LM bifurcates into the left anterior descending artery and left circumflex artery. The LM is patent with no evidence of atherosclerosis. Left Anterior Descending (LAD) and Diagonal Branches: The LAD gives off 2 diagonal branch(es). There is a predominantly noncalcified plaque in the proximal LAD segment along with positive remodeling, as well as in the first diagonal branch, with up to 50-70% luminal stenosis (in the proximal LAD segment). There is no evidence of LAD-myocardial bridge. Left Circumflex (LCX) and Obtuse Marginals (OM): The LCX gives off 1 Obtuse Marginal (OM) branch(es). There is a noncalcified plaque in the proximal LCx segment with up to 25-50% luminal stenosis. Right Coronary Artery (RCA): The RCA originates normally from the right sinus of Valsalva. The RCA gives off a posterior descending artery (PDA) and posterolateral (PL) branches. There is a predominantly noncalcified plaque noted in the proximal RCA segment with up to 25-50% luminal stenosis. Non-Coronary Cardiac Findings: Analysis of the left ventricular (LV) structure and function was performed after 3-D reconstruction of the LV from axial images, with user-corrected automatic contouring for assessment of LV volumes and user-defined reconstruction from oblique planes for measurement of 3-D cardiac structure and function. -The left ventricle systolic function is normal. -There is no left atrial appendage filling defect. Two right pulmonary veins and two left pulmonary veins drain normally into the left atrium. -No pericardial thickening or calcification. -Central and branch pulmonary arteries in the [id number] are unremarkable. -Thoracic aorta within the visualized thoracic aortic-branches in the [id number] is unremarkable. Extracardiac Structures No significant extra-cardiac findings. Note, however, that this study is focused on the cardiac findings. IMPRESSION -Presence of coronary calcification with an Agatston score = 14 using the AJ-130 method. -The observed calcium score of 14 is at 99th percentile for subjects of the same age, sex, and race/ethnicity. -Moderate, non-calcified plaque in the proximal LAD segment, with presence of high risk features and possible evidence of significant flow-limiting atherosclerosis. There is also mild non-calcified plaque in the first diagnoal branch, LCX, and RCA segments. -CAD-RADS 3. Management recommendations per ACC/AHA guidelines*, as clinically appropriate. -In the setting of equivocal ECG treadmill stress test and CCTA showing multivessel noncalcified plaque (with high risk features of positive remodeling), further evaluation with invasive coronary angiography is suggested. *Recommendations: CAD RADS 0: Reassurance. Consider non-atherosclerotic causes of chest pain. CAD RADS 1: Consider non-atherosclerotic causes of chest pain. Consider preventive therapy and risk factor modification. CAD RADS 2: Consider non-atherosclerotic causes of chest pain. Consider preventive therapy and risk factor modification, particularly for patients with nonobstructive plaque in multiple segments. CAD RADS 3: Consider further functional testing. Consider symptom-guided anti-ischemic and preventive pharmacotherapy as well as risk factor modification per published guideline statements. CAD RADS 4A: Consider further functional testing or invasive coronary angiography with revascularization per published guideline statements. Consider symptom-guided anti-ischemic and preventive pharmacotherapy as well as risk factor modification per published guideline statements. CAD RADS 4B: Invasive coronary angiography recommended with revascularization per published guideline statements. Consider symptom-guided anti-ischemic and preventive pharmacotherapy as well as risk factor modification per published guideline statements. CAD RADS 5: Consider invasive angiography and/or viability assessment with revascularization per published guideline statements. Consider symptom-guided anti-ischemic and preventive pharmacotherapy as well as risk factor modification per published guideline statements. CRITICAL RESULT None COMMUNICATION Per this written report The coronary and cardiac findings of this CCTA were reviewed, reported, and signed by Tate Leblanc MD (Chief Environmental Commitment Officer) Conclusion Electronically signed by : Flower Leblanc MD 06/15/2024 13:17:32
[2024-06-14 12:15] VITALS: BP 138/72; PULSE 60; RESP 16; TEMP 36.4; O2SAT 100; BMI 26.0
[2024-06-14] MEDS: METOPROLOL TARTRATE 25MG TABLET 25 MG (12:33)
[2024-06-14 12:36] LABS: Chloride 104 mmol/L (98-107); Potassium 4.1 mmoL/L (3.5-5.1); Sodium 138 mmol/L (136-145)
[2024-06-14 12:39] LABS: Blood Urea Nitrogen 16 mg/dl (9-20); Creatinine Clearance Estimated 135 mL/min (50-200); Estimated Glomerular Filt Rate 95 ml/min (>60); GFR (African American) 115 ML/MIN (>60)
[2024-06-14 12:40] LABS: Anion Gap 9.1 mEq/L (5-15); Calcium 9.5 mg/dl (8.4-10.2); Carbon Dioxide 29 mmol/L (22.0-30.0); Glucose 79 mg/dl (74-100)
[2024-06-14 12:55] VITALS: BP 135/77; PULSE 63; RESP 16; O2SAT 100
[2024-06-14] MEDS: NITROGLYCERIN 0.4MG SL TABLET 0.8 MG SL (12:55)
[2024-06-14 13:00] VITALS: BP 119/80; PULSE 61; RESP 16; O2SAT 100
[2024-06-14 13:03] VITALS: BP 130/82; PULSE 59; RESP 16; O2SAT 100
[2024-06-14 13:07] VITALS: BP 141/76; PULSE 62; RESP 16; O2SAT 99
[2024-06-14] MEDS: IOPAMIDOL-370 (76%);100ML BOTTLE 85 ML IV (13:10)
[2024-06-14] MEDS: SODIUM CHLORIDE 0.9% 10ML SYR (RAD ONLY) 10 ML IV (13:10)
[2024-06-14] MEDS: 0.9 % SODIUM CHLORIDE 50 ML VIAL IV (13:10)
== END 2024-06-14 13:10 | disposition home or self-care (01) ==
PROVIDERS: PCP Nurse Practitioner; Visit Provider Nurse Practitioner
DX: R07.9 Chest pain, unspecified (principal); Z82.49 Family history of ischemic heart disease and other diseases of the circulatory system
CPT/HCPCS: 75574; 80048; Q9967

== ENCOUNTER 2024-06-16 16:25 | Outpatient (CLI) | payer OTHER, SELFPAY ==
[2024-06-16 17:17] LABS: Basophils # 0.1 K/mm3 (0-0.2); Basophils % 0.8 % (0.1-2.0); Eosinophils # 0.4 K/mm3 (0.0-0.4); Eosinophils % 4.1 % (0.1-12.0); Hematocrit 41.9 % (42.0-52.0); Hemoglobin 13.4 g/dL (14.1-18.0); Lymphocytes # 7.8 K/mm3 (0.7-4.5); Lymphocytes % 91.1 % (10-50); Mean Corpuscular HGB Conc 32.1 g/dL (31.8-35.4); Mean Corpuscular Hemoglobin 30.6 pg (27.0-31.2); Mean Corpuscular Volume 95.4 fl (80-94); Mean Platelet Volume 7.8 fl (7.4-10.4); Monocytes # 0.3 K/mm3 (0.1-1.0); Monocytes % 3.5 % (1.7-9.3); Neutrophils # 0.1 K/mm3 (1.8-7.8); Platelet Count 234 K/mm3 (142-424); Red Blood Count 4.39 M/mm3 (4.60-6.20); Red Cell Distribution Width 13.1 % (11.5-17.5); White Blood Count 8.6 K/mm3 (4.8-10.8)
[2024-06-16 17:20] LABS: Alanine Aminotransferase 21 U/L (12-78); Albumin Level 4.4 g/dl (3.5-5.0); Albumin/Globulin Ratio 1.8 (1.1-1.8); Alkaline Phosphatase 72 U/L (38-126); Aspartate Amino Transferase 29 U/L (17-59); Bilirubin,Total 0.4 mg/dl (0.2-1.3); Blood Urea Nitrogen 11 mg/dl (9-20); Calcium 9.3 mg/dl (8.4-10.2); Carbon Dioxide 29 mmol/L (22.0-30.0); Chloride 106 mmol/L (98-107); Estimated Glomerular Filt Rate 95 ml/min (>60); GFR (African American) 115 ML/MIN (>60); Globulin 2.5 g/dL (1.3-3.2); Glucose 85 mg/dl (74-100); Sodium 138 mmol/L (136-145); Total Protein,Serum 6.9 g/dl (6.3-8.2)
[2024-06-16 17:24] LABS: MANUAL DIFFERENTIAL MANUAL DIFFERENTIAL (MANUAL DIFF); Neutrophils % 0.6 % (37.0-80.0)
[2024-06-16 17:53] LABS: Eosinophils % 3 % (0-3); Lymphocytes % 28 % (10-50); Monocytes % 5 % (2-9); Neutrophils % 64 % (42-76); Total Cells Counted 100
[2024-06-16 17:54] LABS: Anisocytosis 1+; Hypochromasia 1+; Microcytosis 2+; Ovalocytes 1+; Platelet Estimate Normal; Poikilocytosis 1+
== END 2024-06-16 23:59 | disposition home or self-care (01) ==
LOC: LAB 16:26
PROVIDERS: PCP Physician Assistant; Visit Provider Internal Medicine Medical Oncology
DX: D70.9 Neutropenia, unspecified (principal)
CPT/HCPCS: 36415; 80053; 85007; 85025; 85027

== ENCOUNTER 2024-06-23 15:19 | Outpatient (CLI) | payer OTHER, SELFPAY ==
[2024-06-23 15:36] LABS: Reticulocyte % (Auto) 1.4 % (0.9-3.2)
[2024-06-23 17:24] LABS: Vitamin B12 715 pg/mL (239-931)
[2024-06-23 17:39] LABS: Iron 78 ug/dL (49-181)
[2024-06-23 17:52] LABS: Lactate Dehydrogenase 165 U/L (313-618)
[2024-06-23 17:54] LABS: Total Iron Binding Capacity 302 ug/dL (261-462)
[2024-06-23 18:15] LABS: Ferritin 88.6 ng/ml (17.9-464)
[2024-06-25 08:10] LABS: Haptoglobin 217 mg/dL (17-317)
== END 2024-06-23 23:59 | disposition home or self-care (01) ==
LOC: LAB 15:20
PROVIDERS: PCP Physician Assistant; Visit Provider Internal Medicine Medical Oncology
DX: D64.9 Anemia, unspecified (principal)
CPT/HCPCS: 36415; 82607; 82728; 82746; 83010; 83540; 83550; 83615; 85044; 86880

== ENCOUNTER 2024-07-31 08:03 | Day surgery (SDC) | payer OTHER, SELFPAY ==
[2024-07-31] VITALS (11 sets, daily range): BP systolic 105–149; BP diastolic 72–90; PULSE 44–72; RESP 16–20; O2SAT 95–100; BMI 27.8
--- NOTE | 2024-07-31 07:02 | IR_ITS ---
APPROVED REPORT Patient Location: Outpatient Sliver Chopper: LESTER Broussard RT (R) PROCEDURES Left heart catheterization Left ventriculogram Selective coronary angiogram Drug-eluting stent deployment to the proximal dominant right coronary artery INDICATION Coronary artery disease, Abnormal CCTA, Angina pectoris Informed consent was obtained prior to the procedure. COMPLICATIONS NONE Estimated Blood Loss: LESS THAN 10 ML TECHNIQUE One percent lidocaine used to anesthetize the right anterior aspect of the wrist. The right radial artery was accessed via the Seldinger technique. A 6 Sammarinese sheath was placed in the right radial artery. 2.5 mg of Verapamil, 800 mcg of nitroglycerin, 1mg Lidocaine and 5000 U Heparin were given through the arterial sheath. The 6 Sammarinese JL 3 guide catheter r was also used to perform left heart catheterization, left ventriculogram and selective coronary angiogram. At the end of the diagnostic angiogram therapeutic heparin was administered giving a therapeutic ACT and the guide catheter was placed in the right coronary artery followed by Choice PT extra-support wire placed distally. A 4 mm x 26 mm Tomasz frontier stent was deployed at 16 krystle reducing the severe stenosis to 0%. MIHIR-3 flow was present before and after the procedure. At the end of procedure the apparatus was removed the sheath was removed and hemostasis was achieved using TR banding patient was transferred to the postop putting in stable condition ANGIOGRAPHIC RESULTS The left main artery Normal The left anterior descending artery Has a proximal concentric 40 to 50% stenosis immediately after a large caliber large first diagonal artery. The diagonal artery has proximal 20% stenosis The circumflex artery Gives rise to a large ramus intermedius which is patent with mild 10 to 20% stenosis the circumflex artery itself is small and normal The right coronary artery Large and dominant has a proximal 70% hazy stenosis followed by a long concentric 10 to 20% stenosis The CAO ventriculogram reveals Normal 65% The left ventricular end-diastolic pressure 10 mmHg IMPRESSION Moderate disease in the proximal LAD as described above Severe stenosis in the proximal dominant right coronary artery with successful stenting reducing the lesion to 0% with 1 drug-eluting stent Normal ejection fraction Normal LVEDP PLAN 1. Effient and aspirin 2. LDL less than 55 to be achieved with high intensity statin 3. Avoidance of tobacco products 4. Cardiac rehabilitation 5. Risk factor modification 6. I am concerned about the proximal LAD stenosis. May be reasonable consider stress testing in 6 to 8 weeks Electronically signed by : Kiko Jimenez MD 07/31/2024 10:50:11
[2024-07-31 08:51] LABS: Basophils # 0.1 K/mm3 (0-0.2); Basophils % 0.7 % (0.1-2.0); Eosinophils # 0.3 K/mm3 (0.0-0.4); Eosinophils % 3.3 % (0.1-12.0); Hematocrit 41.8 % (42.0-52.0); Hemoglobin 13.9 g/dL (14.1-18.0); Lymphocytes # 8.8 K/mm3 (0.7-4.5); Lymphocytes % 90.7 % (10-50); Mean Corpuscular HGB Conc 33.3 g/dL (31.8-35.4); Mean Corpuscular Hemoglobin 31.3 pg (27.0-31.2); Mean Corpuscular Volume 94.2 fl (80-94); Mean Platelet Volume 7.6 fl (7.4-10.4); Monocytes # 0.5 K/mm3 (0.1-1.0); Monocytes % 4.7 % (1.7-9.3); Neutrophils # 0.1 K/mm3 (1.8-7.8); Neutrophils % 0.6 % (37.0-80.0); Platelet Count 257 K/mm3 (142-424); Red Blood Count 4.44 M/mm3 (4.60-6.20); Red Cell Distribution Width 13.1 % (11.5-17.5); White Blood Count 9.7 K/mm3 (4.8-10.8)
[2024-07-31 08:54] LABS: MANUAL DIFFERENTIAL MANUAL DIFFERENTIAL (MANUAL DIFF)
[2024-07-31 08:59] LABS: Chloride 108 mmol/L (98-107); Sodium 140 mmol/L (136-145)
[2024-07-31 09:00] LABS: Potassium 4.2 mmoL/L (3.5-5.1)
[2024-07-31 09:03] LABS: Anion Gap 11.2 mEq/L (5-15); Blood Urea Nitrogen 14 mg/dl (9-20); Carbon Dioxide 25 mmol/L (22.0-30.0); Creatinine Clearance Estimated 162 mL/min (50-200); Estimated Glomerular Filt Rate 109 ml/min (>60); GFR (African American) 132 ML/MIN (>60); Glucose 93 mg/dl (74-100)
[2024-07-31 09:42] LABS: Eosinophils % 2 % (0-3); Lymphocytes % 38 % (10-50); Monocytes % 2 % (2-9); Neutrophils % 58 % (42-76); Platelet Estimate Normal; RBC Morphology Normal; Total Cells Counted 100
[2024-07-31] MEDS: diphenhydrAMINE 50MG/ML VIAL 50 MG IV (09:49)
[2024-07-31] MEDS: NITROGLYCERIN 800MCG/8ML SYR (CATH LAB) 800 MCG IA (09:50)
[2024-07-31] MEDS: VERAPAMIL 2.5MG/ML 2ML VIAL 2.5 MG IV (09:50)
[2024-07-31] MEDS: LIDOCAINE 1% 10ML MDV 20 ML IJ (09:50)
[2024-07-31] MEDS: HEPARIN 1,000 UNITS/ML 10ML VIAL (CATH LAB) 10000 UNIT IV (09:50)
[2024-07-31] MEDS: MIDAZOLAM HCL 1MG/ML 5ML VIAL 1 MG IV (09:51)
[2024-07-31] MEDS: FENTANYL 100MCG/2ML VIAL 50 MCG IV (09:51)
[2024-07-31] MEDS: PRASUGREL 10MG TAB 60 MG PO (10:43)
[2024-07-31] MEDS: IOPAMIDOL-370 (76%);100ML BOTTLE 85 ML IV (10:48)
[2024-07-31 10:49] LABS: CATHL Activated Clotting Time > 400 SEC (74-125)
[2024-07-31] MEDS: 0.9 % SODIUM CHLORIDE 500 ML 25 ML IV (10:54)
[2024-07-31] MEDS: HEPARIN 1,000 UNITS/500ML NS (CATH LAB) 3000 UNIT IV (10:54)
== END 2024-07-31 12:58 | disposition home or self-care (01) ==
PROVIDERS: Visit Provider Internal Medicine
DX: I25.118 Atherosclerotic heart disease of native coronary artery with other forms of angina pectoris (principal); R93.1 Abnormal findings on diagnostic imaging of heart and coronary circulation; R07.9 Chest pain, unspecified; Z82.49 Family history of ischemic heart disease and other diseases of the circulatory system; F17.210 Nicotine dependence, cigarettes, uncomplicated; I77.1 Stricture of artery; Z79.899 Other long term (current) drug therapy
CPT/HCPCS: 80048; 85007; 85025; 85027; 85347; 92928; 93458; 99152; C1725; C1769; C1874; C9600; J1200; J1644; J2250; J3010; Q9967

== ENCOUNTER 2024-08-03 12:01 | Outpatient (CLI) | payer OTHER, SELFPAY ==
[2024-08-03 12:42] LABS: Basophils # 0.1 K/mm3 (0-0.2); Basophils % 0.6 % (0.1-2.0); Eosinophils # 0.3 K/mm3 (0.0-0.4); Eosinophils % 2.8 % (0.1-12.0); Hemoglobin 14.2 g/dL (14.1-18.0); Lymphocytes % 94.3 % (10-50); Mean Corpuscular HGB Conc 33.1 g/dL (31.8-35.4); Mean Corpuscular Hemoglobin 31.3 pg (27.0-31.2); Mean Corpuscular Volume 94.7 fl (80-94); Mean Platelet Volume 7.7 fl (7.4-10.4); Monocytes # 0.2 K/mm3 (0.1-1.0); Monocytes % 1.9 % (1.7-9.3); Neutrophils # 0.1 K/mm3 (1.8-7.8); Platelet Count 247 K/mm3 (142-424); Red Blood Count 4.54 M/mm3 (4.60-6.20); Red Cell Distribution Width 12.9 % (11.5-17.5); White Blood Count 11.7 K/mm3 (4.8-10.8)
[2024-08-03 12:46] LABS: Neutrophils % 0.5 % (37.0-80.0)
[2024-08-03 13:06] LABS: MANUAL DIFFERENTIAL MANUAL DIFFERENTIAL (MANUAL DIFF)
[2024-08-03 13:16] LABS: Chloride 106 mmol/L (98-107); Potassium 4.1 mmoL/L (3.5-5.1); Sodium 141 mmol/L (136-145)
[2024-08-03 13:19] LABS: Anion Gap 12.1 mEq/L (5-15); Blood Urea Nitrogen 14 mg/dl (9-20); Carbon Dioxide 27 mmol/L (22.0-30.0); Estimated Glomerular Filt Rate 95 ml/min (>60); GFR (African American) 115 ML/MIN (>60)
[2024-08-03 13:20] LABS: Calcium 9.8 mg/dl (8.4-10.2); Glucose 80 mg/dl (74-100)
[2024-08-03 14:28] LABS: Eosinophils % 2 % (0-3); Lymphocytes % 31 % (10-50); Monocytes % 2 % (2-9); Neutrophils % 65 % (42-76); Platelet Estimate Normal; RBC Morphology Normal; Total Cells Counted 100
== END 2024-08-03 23:59 | disposition home or self-care (01) ==
LOC: LAB 12:02
PROVIDERS: Visit Provider Internal Medicine
DX: I25.10 Atherosclerotic heart disease of native coronary artery without angina pectoris (principal); Z72.0 Tobacco use
CPT/HCPCS: 36415; 80048; 85007; 85025; 85027

== ENCOUNTER 2024-09-26 06:17 | Outpatient (CLI) | payer OTHER, SELFPAY ==
--- NOTE | 2024-09-26 | CA_ITS ---
APPROVED REPORT Exam: Exercise Treadmill Technologist: Shana Zavala Ht: 6 ft 0 in Wt: 209 lbs BSA: 2.17 m2 HR: 58 bpm BP: 131/75 mmHg Stress Test Details Test: Exercise stress testing was performed using a Kwadwo protocol. HR Resting HR: 58 bpm Max Heart Rate (APMHR): 183 bpm Max HR Achieved: 146 bpm Target HR (85% APMHR): 156 bpm % of APMHR: 80 Recovery HR: 83 bpm HR response to stress: Blunted HR response to stress BP Resting BP: 131.0/75.0 mmHg Max BP: 204.0/81.0 mmHg Recovery BP: 126.0/76.0 mmHg BP response to stress: Abnormal hypertensive response to stress. ECG Resting ECG: Sinus bradycardia Stress EC mm ST depression Clinical Exercise duration: 8:34 min Exercise capacity: 10.3 METs Overall Exercise Capacity for Age: Average Stress ECG Conclusion Symptoms: Mild chest pain Arrhythmias/Ectopy: - ST-T Changes: [address] depression Conclusion: Nondiagnostic ECG stress testing due to inability to achieve target HR. Hypertensive BP response to exercise. Average exercise capacity. ECG equivocal for ischemia at peak stress achieved. Electronically signed by : Flower Leblanc MD 09/26/2024 12:26:44
--- NOTE | 2024-09-26 06:25 | NM_ITS ---
APPROVED REPORT Exam: Nuclear Stress Test Indication: SOB, HTN, High cholesterol, Tobacco use, Family history, CAD Patient Location: Outpatient Stress Tech: Shana Zavala NM Tech:Janelle Gordon, ARRT, RT (R)(N) Ht: 5 ft 11 in Wt: 200 lbs HR: 59 bpm BP: 131/75 mmHg BSA: 2.11 m2 TID: 1.02 BMI: 27.8 History: SOB, HTN, High cholesterol, Tobacco use, Family history, CAD Procedure: Patient exercised on Kwadwo protocol 8:34 minutes and sec, resting heart rate 59 bpm, resting blood pressure 131/75 mmHg, with exercise maximum heart rate achived was 146 bpm which is 79 % of the maximum predicted heart rate and blood pressure was 204/81 mmHg. Test was stopped due to SOB. Patient denied any complaint of chest pain. Patient has exercise capacity, achieved 10.3 METs of workload on treadmill, the blood pressure response to exercise was . Cardiac Stress and Resting SPECT Images: Cardiac Stress and Resting SPECT images were obtained using technetium 99m Myoview 31.7 mCi stress and 10.87 mCi at rest. Technically difficult study due to significant soft tissue overlap with the cardiac borders. This may affect the diagnostic interpretation of the study findings. Resting and stress imaging in supine and prone positions demonstrate no evidence of fixed or reversible perfusion defects. Gated imaging demonstrates normal global and regional LV systolic function. LVEF is calculated at 52%. Conclusion: Technically difficult study. No evidence of fixed or reversible perfusion defects. Gated imaging demonstrates normal global and regional LV systolic function. LVEF is calculated at 52%. Electronically signed by : Flower Leblanc MD 09/26/2024 12:22:21
[2024-09-26] MEDS: ISOTOPE MYOVIEW (PER STUDY) 1 DOSE IV (08:36)
[2024-09-26] MEDS: SODIUM CHLORIDE 0.9% 10ML SYR (RAD ONLY) 10 ML IV ×2 (08:36)
== END 2024-09-26 23:59 | disposition home or self-care (01) ==
LOC: RAD 06:18
PROVIDERS: Visit Provider Nurse Practitioner
DX: I25.10 Atherosclerotic heart disease of native coronary artery without angina pectoris (principal); R93.1 Abnormal findings on diagnostic imaging of heart and coronary circulation; R07.9 Chest pain, unspecified
CPT/HCPCS: 78452; 93017; 93018; A9502

== ENCOUNTER 2024-10-02 15:19 | Outpatient (CLI) | payer OTHER, SELFPAY ==
[2024-10-02 15:44] LABS: Basophils # 0.1 K/mm3 (0-0.2); Basophils % 0.7 % (0.1-2.0); Eosinophils # 0.1 K/mm3 (0.0-0.4); Eosinophils % 1.5 % (0.1-12.0); Hematocrit 38.9 % (42.0-52.0); Hemoglobin 12.9 g/dL (14.1-18.0); Lymphocytes # 2.9 K/mm3 (0.7-4.5); Lymphocytes % 30.9 % (10-50); Mean Corpuscular HGB Conc 33.2 g/dL (31.8-35.4); Mean Corpuscular Hemoglobin 30.6 pg (27.0-31.2); Mean Corpuscular Volume 92.4 fl (80-94); Mean Platelet Volume 9.7 fl (7.4-10.4); Monocytes # 0.5 K/mm3 (0.1-1.0); Monocytes % 5.8 % (1.7-9.3); Neutrophils # 5.7 K/mm3 (1.8-7.8); Neutrophils % 60.9 % (37.0-80.0); Platelet Count 245 K/mm3 (142-424); Red Blood Count 4.21 M/mm3 (4.60-6.20); Red Cell Distribution Width 12.4 % (11.5-17.5); White Blood Count 9.4 K/mm3 (4.8-10.8)
[2024-10-02 16:31] LABS: Albumin Level 4.5 g/dl (3.5-5.0)
[2024-10-02 16:32] LABS: Chloride 107 mmol/L (98-107); Potassium 4.4 mmoL/L (3.5-5.1); Sodium 138 mmol/L (136-145)
[2024-10-02 16:34] LABS: Alanine Aminotransferase 25 U/L (12-78); Anion Gap 10.4 mEq/L (5-15); Aspartate Amino Transferase 30 U/L (17-59); Bilirubin,Unconjugated 0.3 mg/dL (0.0-1.1); Blood Urea Nitrogen 10 mg/dl (9-20); Carbon Dioxide 25 mmol/L (22.0-30.0); Estimated Glomerular Filt Rate 109 ml/min (>60); GFR (African American) 132 ML/MIN (>60)
[2024-10-02 16:35] LABS: Alkaline Phosphatase 91 U/L (38-126); Bilirubin,Direct 0.1 mg/dl (0.0-0.4); Bilirubin,Indirect 0.2 mg/dL (0.0-0.9); Bilirubin,Total 0.3 mg/dl (0.2-1.3); Calcium 9.5 mg/dl (8.4-10.2); Chol/HDL Ratio 3.1 (1-3.5); Cholesterol 117 mg/dl (140-200); Glucose 73 mg/dl (74-100); HDL Cholesterol 38 mg/dl (40-60); Magnesium 1.8 mg/dl (1.6-2.3); Total Protein,Serum 6.6 g/dl (6.3-8.2); Triglycerides 103 mg/dl (30-150); VLDL Cholesterol 21 mg/dL (0-40)
[2024-10-02 16:46] LABS: Direct LDL Cholesterol 57.49 mg/dL (100-129)
[2024-10-02 16:52] LABS: Free T4 (Free Thyroxine) 1.26 ng/dl (0.78-2.19)
[2024-10-02 17:06] LABS: Thyroid Stimulating Hormone 1.08 uIU/mL (0.465-4.68)
== END 2024-10-02 23:59 | disposition home or self-care (01) ==
LOC: LAB 15:20
PROVIDERS: Visit Provider Nurse Practitioner
DX: N52.9 Male erectile dysfunction, unspecified (principal); I25.10 Atherosclerotic heart disease of native coronary artery without angina pectoris; Z95.5 Presence of coronary angioplasty implant and graft; D70.9 Neutropenia, unspecified; Z72.0 Tobacco use
CPT/HCPCS: 36415; 80048; 80061; 80076; 83735; 84439; 84443; 85025

== ENCOUNTER 2024-12-20 13:27 | Outpatient (CLI) | payer OTHER, SELFPAY ==
[2024-12-20 13:48] LABS: Basophils # 0.1 K/mm3 (0-0.2); Basophils % 0.5 % (0.1-2.0); Eosinophils # 0.1 K/mm3 (0.0-0.4); Eosinophils % 1.5 % (0.1-12.0); Hematocrit 40.5 % (42.0-52.0); Hemoglobin 13.1 g/dL (14.1-18.0); Lymphocytes # 2.4 K/mm3 (0.7-4.5); Lymphocytes % 25.1 % (10-50); Mean Corpuscular HGB Conc 32.3 g/dL (31.8-35.4); Mean Corpuscular Hemoglobin 30.3 pg (27.0-31.2); Mean Corpuscular Volume 93.8 fl (80-94); Mean Platelet Volume 9.9 fl (7.4-10.4); Monocytes # 0.4 K/mm3 (0.1-1.0); Monocytes % 4.7 % (1.7-9.3); Neutrophils # 6.4 K/mm3 (1.8-7.8); Nucleated Red Blood Cells # 0 10^3/uL; Nucleated Red Blood Cells % 0 %; Platelet Count 240 K/mm3 (142-424); Red Blood Count 4.32 M/mm3 (4.60-6.20); Red Cell Distribution Width 12.8 % (11.5-17.5); Red Cell Distribution Width-SD 44.2 fL; White Blood Count 9.4 K/mm3 (4.8-10.8)
== END 2024-12-20 23:59 | disposition home or self-care (01) ==
LOC: LAB 13:28
PROVIDERS: Visit Provider Internal Medicine Medical Oncology
DX: D70.9 Neutropenia, unspecified (principal)
CPT/HCPCS: 36415; 85025

== ENCOUNTER 2025-02-27 15:08 | Outpatient (CLI) | payer OTHER, SELFPAY ==
--- OUTSIDE RECORDS SUMMARY | 2025-02-27 15:11 | XMS_ITS | Clinical Summary ---
Author Organization [facility] Address [address] [place] [address] Care Team Providers Care Projection Technician Name Role Phone RustyIra Aman LI Primary Care Provider [phone] Allergies No known active allergies Medications No known medications Social History Tobacco Use Types Packs/Day Years Used Date Smoking Tobacco: Every Day Cigarettes Smokeless Tobacco: Current Chew Alcohol Use Standard Drinks/Week Comments Yes 0 (1 standard drink = 0.6 oz pur e alcohol) Sex and Gender Information Value Date Recorded Sex Assigned at Not on file Legal Sex Male 6:13 PM EDT Gender Identity Not on file Sexual Orientation Not on file Last Filed Vital Signs Vital Sign Reading Time Taken Comments Blood Pressure 135/81 2021 1:23 PM EDT Pulse 85 2021 1:23 PM EDT Temperature 36.8 C (98.2 F) 2021 1:23 PM EDT Respiratory Rate - - Oxygen Saturation 98% 2021 1:23 PM EDT Inhaled Oxygen Concentration - - Weight 90.3 kg (199 lb) 2021 1:23 PM EDT Height 180.3 cm (5' 11 ) 2021 1:23 PM EDT Body Mass Index 27.75 2021 1:23 PM EDT Plan of Treatment Health Maintenance Due Date Last Done Comments [facility]-Depression Screening 1987 [facility]-Infant/Child/Adol SDOH Screenings 1987 [facility]-Varicella Vaccines (1 of 2 - 13+ 2-dose series) 2000 HPV Vaccines (1 - Male 3-dose series) 2002 [facility]-DTaP,Tdap,and Td Vaccines (2 - Tdap) 05/06/2002 05/05/2002 [facility]- SDOH Screenings 2005 [facility]-Adult SDOH Screenings 2005 [id number] Vaccine (2023- season) 2024 [facility]-Influenza Vaccine (Season Ended) 2025 07/13/2017 [facility]-Zoster Vaccines (1 of 2) 2037 [facility]-Hepatitis B Vaccines Completed 003, 06/09/2002, 05/05/2002 [facility]-HIB Vaccines Aged Out No longer e ligible based on patient's age to complete this topic [facility]-Hepatitis A Vaccines Aged Out No longer eligible based on patient's age to complete this topic [facility]-IPV Vaccines Aged Out No longer e ligible based on patient's age to complete this topic [facility]-Pneumococcal Vaccine: Pediatrics (0 to 5 Years) and At-Risk Patients (6 to 49 Years) Aged Out No longer eligible b ased on patient's age to complete this topic [facility]-Rotavirus Vaccines Aged Out No lo nger eligible based on patient's age to complete this topic Insurance [employer]IC [employer] [facility] MEDICAID Care Teams Projection Technician Relationship Specialty Start Date End Date Ira Ojeda PA [address] [place] [address] PCP - General 01/24/21
[2025-02-27 16:41] LABS: Basophils # 0.1 K/mm3 (0-0.2); Basophils % 0.6 % (0.1-2.0); Eosinophils # 0.2 Kmm3 (0.0-0.4); Eosinophils % 1.9 % (0.1-12.0); Hematocrit 37.9 % (42.0-52.0); Hemoglobin 12.2 g/dL (14.1-18.0); Immature Granulocytes # 0.02 10^3uL; Immature Granulocytes % 0.2 %; Lymphocytes # 2.5 K/mm3 (0.7-4.5); Lymphocytes % 29.8 % (10-50); Mean Corpuscular HGB Conc 32.2 g/dL (31.8-35.4); Mean Corpuscular Hemoglobin 29.8 pg (27.0-31.2); Mean Corpuscular Volume 92.7 fl (80-94); Mean Platelet Volume 10.1 fl (7.4-10.4); Monocytes # 0.5 K/mm3 (0.1-1.0); Monocytes % 5.9 % (1.7-9.3); Neutrophils # 5.1 K/mm3 (1.8-7.8); Neutrophils % 61.6 % (37.0-80.0); Nucleated Red Blood Cells # 0 10^3/uL; Nucleated Red Blood Cells % 0 %; Platelet Count 274 K/mm3 (142-424); Red Blood Count 4.09 M/mm3 (4.60-6.20); Red Cell Distribution Width 12.8 % (11.5-17.5); Red Cell Distribution Width-SD 43.7 fL; White Blood Count 8.3 K/mm3 (4.8-10.8)
== END 2025-02-27 23:59 | disposition home or self-care (01) ==
LOC: LAB 15:09
PROVIDERS: Visit Provider Physician Assistant
DX: E78.49 Other hyperlipidemia (principal); I10 Essential (primary) hypertension; I25.10 Atherosclerotic heart disease of native coronary artery without angina pectoris; T14.8XXA Other injury of unspecified body region, initial encounter
CPT/HCPCS: 36415; 85025

== ENCOUNTER 2025-04-02 12:29 | Emergency (ER) | payer OTHER, SELFPAY ==
--- NOTE | 2025-04-02 12:36 | PC.NURSE ---
DR RIDDLE AT BEDSIDE
--- NOTE | 2025-04-02 12:38 | CA_ITS ---
FINAL REPORT TECHNIQUE: Ultrasound images of the deep venous system were obtained from the left groin to the calf veins. CLINICAL HISTORY: Stents, HTN, HLD, ASA, Plavix FINDINGS: The deep venous system is normally compressible. Normal flow is identified. IMPRESSION: No evidence of left lower extremity DVT. Reviewed, Interpreted and Dictated by Nolan Aquino MD Transcribed by Kari Plunkett Authenticated and [facility]
[2025-04-02 12:39] VITALS: BP 171/104; PULSE 78; RESP 16; TEMP 36.6; O2SAT 98; BMI 28.7
--- NOTE | 2025-04-02 12:41 | ED_ITS ---
Discharge Plan Disposition Patient Disposition: Home, Self-Care Prescriptions Prescriptions: No Action aspirin [Adult Low Dose Aspirin] 81 mg tablet,delayed release (DR/EC) 81 mg PO DAILY Qty: 30 5RF clopidogrel [Plavix] 75 mg tablet 75 mg PO DAILY Qty: 30 6RF atorvastatin 40 mg tablet See Rx Instructions .ROUTE .COMPLEX Qty: 90 3RF Dose Instruction: Take 1 tablet by mouth once daily Rx Instructions: Take 1 tablet by mouth once daily metoprolol succinate 25 mg tablet extended release 24 hr See Rx Instructions .ROUTE .COMPLEX Qty: 90 3RF Dose Instruction: Take 1 tablet by mouth once daily Rx Instructions: Take 1 tablet by mouth once daily tadalafil 5 mg tablet See Rx Instructions .ROUTE .COMPLEX Qty: 90 3RF Dose Instruction: Take 1 tablet by mouth once daily Rx Instructions: Take 1 tablet by mouth once daily Referrals Follow up/Referrals: Provider,Referral, MD [Primary Care Provider, Medical] - See instructions Activity Restrictions/Add. Instructions Additional Instructions/Restrictions: Follow-up with your primary care physician if symptoms not improved. You can take Tylenol for the pain. I would avoid ibuprofen given you are on a blood thinner and this can increase your risk of bleeding. Continue to hydrate well by drinking plenty of fluids. Continue to stretch and keep the muscles loose. You can use ice packs/heating pads and compression wraps if needed. If you develop any new or worsening symptoms, or if you become concerned for your health for any reason, return to the emergency department for evaluation Clinical Impressions Clinical Impression: Pain of left calf Print Language Print Language: Eritrean Discharge ED Provider: Librado Mckeon Adult HPI General Chief complaint: Extremity Injury, Lower Stated complaint: left leg pain Time Seen by Provider: 04/02/25 12:33 Mode of Arrival: Ambulatory Source of Information: Patient Limitations: No Limitations History of Present Illness HPI narrative: Nikolai Brower is a 39y male with a history of coronary artery disease status post stent on aspirin and Plavix, hypertension, who presents to the emergency department for complaints of left leg pain. Patient states that he went camping this weekend and woke up yesterday with pain in his left calf worsened with walking. He states that the pain worsened today. He states that he had an episode of numbness and tingling in the foot that has since resolved. He does note that he chronically has numbness and tingling in his toe when he sits with his legs up that is unchanged from baseline. He does not have any new numbness or tingling at this time. He denies any history of blood clots but was seen at the clinic and was sent for concern for blood clot. He denies any swelling of the left lower extremity. He denies any recent strenuous physical activity or trauma to the area. He denies any recent viral illnesses or fever. Related Data Previous Rx's ?Medication ?Instructions ?Recorded aspirin 81 mg tablet,delayed 81 mg PO DAILY #30 tabs 1 release (Adult Low Dose Aspirin) atorvastatin 40 mg tablet See Rx Instructions .Route 0 11/07/24 .COMPLEX #90 tabs metoprolol succinate 25 mg See Rx Instructions .Route 11/07/24 tablet,extended release 24 hr .COMPLEX #90 tabs tadalafil 5 mg tablet See Rx Instructions .Route 0 11/14/24 .COMPLEX #90 tabs clopidogrel 75 mg tablet (Plavix) 75 mg PO DAILY #30 t abs 02/27/25 Allergies Allergy/AdvReac Type Severity Reaction Status Date / Time No Known Allergies Allergy Verified 04/02/25 11:35 [facility] Disclaimer: The information contained in this section may have been updated after the patient was seen, as this information can be updated by other users. Medical History Coronary artery disease Family history of ischemic heart disease Enchondroma of bone of hand Gastroenteritis Nausea and vomiting Surgical History History of coronary artery stent placement S/P cardiac cath No significant past surgical history Family History Mother Cancer Other Heart attack Stroke Social History Smoking Status: Current every day smoker tobacco type: cigarettes alcohol intake: current alcohol intake frequency: holidays/special occasions only current occupational status: employed Travel in the last 8 weeks?: None current occupation: super Have you lived/traveled outside [place] in past 30 days?: No Contact w/someone who lives/traveled outside US past 30 days?: No Exposure to someone with infectious disease in past 14 days?: No Do you have a fever (greater than 100.4 F or 38 C)?: No Have you tested positive for COVID-19?: No Exposed to someone with COVID-19 in past 14 days?: No Do you have a sore throat?: No Do you have a cough?: No Do you have any weakness?: No Do you have any diarrhea?: No Are you experiencing any unusual bleeding?: No Do you have any muscle aches/pain?: No Do you have any abdominal pain?: No Are you experiencing loss of taste or smell?: No Other Medical History Have you received the Flu Vaccine for this season: No Have you received the Pneumonia Vaccine: No ROS Obtained: Yes Systems reviewed as appropriate & no additional complaints except as documented Physical Exam General General appearance: alert and in no apparent distress Head Head exam: atraumatic Eye Eye exam: Present normal appearance ENT ENT exam: Present normal external ear exam Neck Neck exam: Present full ROM Chest Chest inspection: Present symmetric chest wall rise Respiratory Respiratory exam: Present normal lung sounds bilaterally; Absent respiratory distress Cardiovascular Cardiovascular exam: Present regular rate and normal rhythm Abdominal Exam Abdominal exam: Present soft; Absent tenderness or guarding exam: Present deferred Extremities Exam Extremities exam: Present normal inspection and other (LLE: Tenderness to the posterior calf but no swelling. 2+ DP and PT pulses. Neurovascularly intact distally with no sensory loss/deficits.) Back Exam Back exam: Present normal inspection Neurological Exam Neurological exam: Present alert and oriented X3 Psychiatric Psychiatric exam: Present normal affect Skin Skin exam: Present warm and dry Medical Decision Making Medical Records Screening: Per USPSTF and CDC recommendations, given the prevalence of disease in our region, it is our hospital?s policy to screen for HIV and viral Hepatitis for all patients aged 18 and over and those with ongoing risk factors. Bear Inquiry Pt receiving controlled substance: No Vital Signs: 04/02/25 12:39 04/02/25 13:30 04/02/25 14:00 Temperature 97.9 F 98.7 F Temperature Source Oral Pulse Rate 59 L 67 Pulse Rate [Left] 78 Respiratory Rate 16 18 18 Blood Pressure 142/95 H 135/93 H Blood Pressure [Right Arm] 171/104 H Blood Pressure Mean 116 107 Blood Pressure Mean [Right Arm] 126 Blood Pressure Source [Right Arm] Automatic Cuff 02 Sat by Pulse Oximetry 98 98 98 Oxygen Delivery Method Room Air Lab Data Lab Results 04/02/25 12:53: WBC 9.3, RBC 4.63, Hgb 14.2, Hct 42.4, MCV 91.6, MCH 30.7, MCHC 33.5, RDW 13.0, Plt Count 283, MPV 9.5, Neut % (Auto) 70.7, Lymph % (Auto) 21.9, Jefferson % (Auto) 4.8, Eos % (Auto) 1.8, Baso % (Auto) 0.6, Neut # (Auto) 6.6, Lymph # (Auto) 2.0, Jefferson # (Auto) 0.5, Eos # (Auto) 0.2, Baso # (Auto) 0.1, Sodium 134 L, Potassium 4.0, Chloride 103, Carbon Dioxide 25, Anion Gap 10.0, BUN 11, Creatinine 0.70, Estimated Creat Clear 191, Estimated GFR 127, Est GFR ( Amer) 154, Glucose 93, Calcium 9.6, Magnesium 1.9, Total Bilirubin 1.2, AST 46, ALT 23, Alkaline Phosphatase 105, Total Creatine Kinase 457 H, Total Protein 7.7, Albumin 4.6, Globulin 3.1, Albumin/Globulin Ratio 1.5 04/02/25 12:53 04/02/25 12:53 Orders (Tests/Meds): ED MEDICATIONS Discontinued Medications Generic Name Dose Route Start Last Admin Trade Name Freq PRN Reason Stop Dose Admin Acetaminophen 1,000 mg 04/02/25 12:38 04/02/25 12:46 Acetaminophen 500mg Tab PO 04/02/25 12:39 1,000 mg ONCE ONE Administration ORDERS Category Date Time Status CBC w/Auto Diff [Complete Blood Count Auto Diff] Stat Lab 04/02/25 12:53 Completed CK [Creatine Kinase] Stat Lab 04/02/25 12:53 Completed CMP [Comprehensive Metabolic Panel] Stat Lab 04/02/25 12:53 Completed Magnesium Stat Lab 04/02/25 12:53 Completed CA venous doppler LE LT Stat Y 04/02/25 12:38 Completed Medical Decision Narrative: Nikolai Brower is a 39y male with a history of coronary artery disease status post stent on aspirin and Plavix, hypertension, who presents to the emergency department for complaints of left leg pain. Patient states that he went camping this weekend and woke up yesterday with pain in his left calf worsened with walking. He states that the pain worsened today. He states that he had an episode of numbness and tingling in the foot that has since resolved. He does note that he chronically has numbness and tingling in his toe when he sits with his legs up that is unchanged from baseline. He does not have any new numbness or tingling at this time. He denies any history of blood clots but was seen at the clinic and was sent for concern for blood clot. He denies any swelling of the left lower extremity. He denies any recent strenuous physical activity or trauma to the area. He denies any recent viral illnesses or fever. On arrival, patient is hypertensive with blood pressure 171/104, heart rate within normal limits, afebrile, oxygen saturation 90% on room air. Physical exam, stated above, revealed overall well-appearing male in no distress. He has 2+ DP and PT pulses. Sensation intact throughout the foot. He has some tenderness to the posterior calf but no swelling of the left calf compared to the right. Differential diagnosis includes, but is not limited to: DVT, rhabdomyolysis, myositis, muscle strain, electrolyte derangement,among others. Low concern for arterial occlusion as patient has strong palpable pulses and no neurodeficits. The most morbid conditions were considered and workup was based on these. Workup in the emergency department included: Left lower extremity DVT ultrasound, CBC, CMP, magnesium level, CK Laboratory studies show no leukocytosis, no anemia. Chemistry with mildly low sodium of 134, potassium normal at 4. Magnesium normal at 1.9. Liver enzymes within normal limits. CK mildly elevated at 457 but does not meet criteria for rhabdomyolysis. Patient probably has mild muscle injury either from overuse during camping or viral etiology. Laboratory studies otherwise unremarkable nonactionable. DVT ultrasound interpreted by me personally. No evidence of deep vein thrombosis or other significant findings. Given this, is felt the patient is appropriate for discharge at this time. Encouraged oral hydration, Tylenol. Recommended follow-up with primary care physician if symptoms not improved. Return precautions were provided. All questions were answered. He demonstrated understanding and was agreement this plan. He was then discharged in the emergency department in stable condition. Critical Care Critical Care Time Critical Care Time: No
[2025-04-02] MEDS: ACETAMINOPHEN 500MG TAB 1000 MG PO (12:46)
--- OUTSIDE RECORDS SUMMARY | 2025-04-02 12:48 | XMS_ITS | Clinical Summary ---
Author Organization [facility] Address [address] [place] [address] Care Team Providers Care Gate Watchman Name Role Phone RustyIra Aman LI Primary Care Provider [phone] Allergies No known active allergies Medications No [...] SDOH Screenings 2005 [facility]-Adult SDOH Screenings 2005 [id number] Vaccine (2023- season) 2024 [facility]-Influenza Vaccine (#1) 2025 07/13/2017 [facility]-Zoster Vaccines (1 of 2) [...] to complete this topic Insurance [employer] [facility] MEDICAID Care Teams Gate Watchman Relationship Specialty Start Date End Date Ira Ojeda PA [address] [place] [address] PCP - General 01/24/21
[2025-04-02 13:05] LABS: Hematocrit 42.4 % (42.0-52.0); Hemoglobin 14.2 g/dL (14.1-18.0); Immature Granulocytes % 0.2 %; Mean Corpuscular HGB Conc 33.5 g/dL (31.8-35.4); Mean Corpuscular Hemoglobin 30.7 pg (27.0-31.2); Mean Corpuscular Volume 91.6 fl (80-94); Nucleated Red Blood Cells % 0 %; Platelet Count 283 K/mm3 (142-424); Red Blood Count 4.63 M/mm3 (4.60-6.20); Red Cell Distribution Width-SD 43.5 fL; White Blood Count 9.3 K/mm3 (4.8-10.8)
[2025-04-02 13:07] LABS: Albumin Level 4.6 g/dl (3.5-5.0); Chloride 103 mmol/L (98-107); Potassium 4.0 mmoL/L (3.5-5.1); Sodium 134 mmol/L (136-145)
[2025-04-02 13:09] LABS: Alanine Aminotransferase 23 U/L (12-78); Blood Urea Nitrogen 11 mg/dl (9-20); Creatinine Clearance Estimated 191 mL/min (50-200); Creatinine,Serum 0.70 mg/dl (0.66-1.25); Estimated Glomerular Filt Rate 127 ml/min (>60); GFR (African American) 154 ML/MIN (>60)
[2025-04-02 13:10] LABS: Albumin/Globulin Ratio 1.5 (1.1-1.8); Alkaline Phosphatase 105 U/L (38-126); Anion Gap 10.0 mEq/L (5-15); Aspartate Amino Transferase 46 U/L (17-59); Bilirubin,Total 1.2 mg/dl (0.2-1.3); Calcium 9.6 mg/dl (8.4-10.2); Carbon Dioxide 25 mmol/L (22.0-30.0); Creatine Kinase 457 U/L (55-170); Globulin 3.1 g/dL (1.3-3.2); Glucose 93 mg/dl (74-100); Magnesium 1.9 mg/dl (1.6-2.3); Total Protein,Serum 7.7 g/dl (6.3-8.2)
--- NOTE | 2025-04-02 13:21 | PC.NURSE ---
US tech reports left leg venous exam appears neg.
[2025-04-02 13:30] VITALS: BP 142/95; PULSE 59; RESP 18; O2SAT 98
[2025-04-02 14:00] VITALS: BP 135/93; PULSE 67; RESP 18; TEMP 37.1; O2SAT 98
[2025-04-02 14:10] VITALS: BP 135/93; PULSE 89; RESP 16; TEMP 36.6; O2SAT 98
== END 2025-04-02 14:17 | disposition home or self-care (01) ==
PROVIDERS: Emergency Provider Student in an Organized Health Care Education/Training Program
DX: M79.662 Pain in left lower leg (principal); I10 Essential (primary) hypertension; F17.210 Nicotine dependence, cigarettes, uncomplicated
CPT/HCPCS: 80053; 82550; 83735; 85025; 93971; 99284